=== PATIENT | female | born 1970 | race Caucasian/White ===

== ENCOUNTER 2016-04-17 14:44 | Emergency (ER) | payer OTHER ==
[~2016-04-17] VITALS: Ht 162.6 cm; Wt 63.5 kg
[~2016-04-17 14:44] MED LIST: ATIVAN1 MG PO; IMITREX100 MG PO; IMITREX50 MG PO; LOTENSIN20 MG PO; NORVASC5 MG PO; TRAMADOL50 MG; ZOFRAN ODT4 MG PO; [UNRECOGNIZED DRUG - OTHER]
[2016-04-17 15:02] VITALS: BP 124/82
--- NOTE | 2016-04-17 17:24 | NUR ---
Patient to bed 02.
--- NOTE | 2016-04-17 17:34 | NUR ---
NATANAEL CAME TRO ER DUE TO HEADACHE. PT WAS TOLD THAT SHE HAD A HIGH BP AND ADVISED TO COME HERE IN ER. PTC/O OF FRONTAL HEADACHE. PRESSURE ON CHEST. PT STATES SHE HAD A HX OF HTN, MIGRAINE AND ASTHMA.HOB ELEVATED. ALL MONITORS PLACED IN. SAFETY PRECAUTIOIN INSTITUTED. MADE AWARE OF PT'S CONDITION. WILL CONTINUE TO MONITOR PT.
--- NOTE | 2016-04-17 17:45 | NUR ---
Dr. Murrieta evaluating patient at bedside.
[2016-04-17] MEDS ORDERED: NITROGLYCERIN 0.4 MG TAB SL ONE (17:50)
[2016-04-17] MEDS ORDERED: NACL 0.9% 1,000 ML IV ONE (17:50)
[2016-04-17] MEDS ORDERED: ASPIRIN 325 MG TAB PO ONE (17:50)
--- NOTE | 2016-04-17 17:58 | NUR ---
PT AAOX4. NO ACUTE DISTRESS NOTED AT THIS TIME. PT WENT TO CT SCAN ACCOMAPNIED BY Mitro.
[2016-04-17] MEDS ORDERED: METOCLOPRAMIDE 10 MG/2 ML INJ VIAL IVP ONE (18:40)
--- NOTE | 2016-04-17 18:51 | NUR ---
PT C/O HEADACHE. NOTIFIED DR BROWER ORDERED REGLAN IVP.NO ACUTE DISTRESS NOTED AT THIS TIME.WILL CONTINUE TO MONITOR PT.
[2016-04-17] MEDS ORDERED: IBUPROFEN 800 MG TAB PO ONE (18:55)
--- NOTE | 2016-04-17 19:17 | NUR ---
TRANSFER OF CARE TO DAXA FUNG
--- NOTE | 2016-04-17 19:35 | NUR ---
Patient discharged with v/s stable. Written and verbal after care instructions given and explained. Patient alert, oriented and verbalized understanding of instructions. Ambulatory with steady gait. All questions addressed prior to discharge. ID band removed. Patient advised to follow up with PMD. Rx of MOTRIN 800MG PO, REGLAN 10MG PO given. Patient educated on indication of medication including possible reaction and side effects. Opportunity to ask questions provided and answered.
[2016-04-17 19:36] VITALS: BP 122/62
== END 2016-04-17 19:35 | disposition home or self-care (01) ==
LOC: MED 14:45
DX: E16.2 Hypoglycemia, unspecified (principal); R51 Headache; R53.1 Weakness; J45.909 Unspecified asthma, uncomplicated; I10 Essential (primary) hypertension; G43.909 Migraine, unspecified, not intractable, without status migrainosus; F17.210 Nicotine dependence, cigarettes, uncomplicated
CPT/HCPCS: 36415; 70450; 71010; 80053; 81002; 81025; 83880; 84484; 85025; 85610; 85730; 93005; 96361; 96374; 99285; J2765; J7030

== ENCOUNTER 2016-05-13 10:26 | Emergency (ER) | payer OTHER ==
[~2016-05-13] VITALS: Ht 160 cm; Wt 59.0 kg
[2016-05-13 10:38] VITALS: BP 139/102
--- NOTE | 2016-05-13 10:41 | NUR ---
PATIENT TO ER BED 3.
--- NOTE | 2016-05-13 10:45 | NUR ---
PATIENT PRESENTS TO ED WITH PT PRESENTS TO ER W/C/O HEADACHE X1 DAY. HX HTN, MIGRAINES.DENIES N/V/D; SKIN IS PINK/WARM/DRY; AAOX4 WITH EVEN AND STEADY GAIT; LUNGS CLEAR BL; HR EVEN AND REGULAR; PT DENIES ANY FEVER, CP, SOB, OR COUGH AT THIS TIME; PATIENT STATES PAIN OF 9/10 AT THIS TIME; VSS; PATIENT POSITIONED FOR COMFORT; HOB ELEVATED; BEDRAILS UP X2; BED DOWN. ER MD MADE AWARE OF PT STATUS.
--- NOTE | 2016-05-13 10:47 | NUR ---
Patient being evaluated by physician at bedside.
[2016-05-13] MEDS ORDERED: KETOROLAC 60 MG/2 ML VIAL IM ONE (10:50)
[2016-05-13] MEDS ORDERED: PROCHLORPERAZINE 10 MG/2 ML VIAL IM ONE (10:50)
[2016-05-13 11:46] VITALS: BP 131/91
--- NOTE | 2016-05-13 11:46 | NUR ---
Patient discharged with v/s stable. Written and verbal after care instructions given and explained. Patient alert, oriented and verbalized understanding of instructions. Ambulatory with steady gait. All questions addressed prior to discharge. ID band removed. Patient advised to follow up with PMD. Rx of COMPAZINE AND FIORICET given. Patient educated on indication of medication including possible reaction and side effects. Opportunity to ask questions provided and answered.
== END 2016-05-13 11:46 | disposition home or self-care (01) ==
LOC: MED 10:26
DX: R51 Headache (principal); R11.0 Nausea
CPT/HCPCS: 96372; 99284; J0780; J1885

== ENCOUNTER 2016-09-22 11:12 | Emergency (ER) | payer OTHER ==
[~2016-09-22] VITALS: Ht 160 cm; Wt 64.2 kg
[~2016-09-22 11:12] MED LIST changes: +AMLO5TAB PO; -ATIVAN1 MG PO; +BENA20TA PO; -IMITREX100 MG PO; -IMITREX50 MG PO; -LOTENSIN20 MG PO; -NORVASC5 MG PO; +ONDA4ODT1 PO; +SUMA100T1 PO; -TRAMADOL50 MG; -ZOFRAN ODT4 MG PO; -[UNRECOGNIZED DRUG - OTHER]
[2016-09-22 11:23] VITALS: BP 137/87
[2016-09-22] MEDS ORDERED: KETOROLAC 60 MG/2 ML VIAL IM ONE (11:45)
[2016-09-22 12:23] VITALS: BP 137/87
== END 2016-09-22 12:22 | disposition home or self-care (01) ==
LOC: MED 11:12
DX: G62.9 Polyneuropathy, unspecified (principal); J45.909 Unspecified asthma, uncomplicated; I10 Essential (primary) hypertension; F17.200 Nicotine dependence, unspecified, uncomplicated
CPT/HCPCS: 81002; 81025; 96372; 99283; J1885

== ENCOUNTER 2018-03-18 19:42 | Emergency (ER) | payer OTHER ==
[~2018-03-18] VITALS: Ht 160 cm; Wt 65.4 kg
[~2018-03-18 19:42] MED LIST changes: +ONDA-121 PO; -ONDA4ODT1 PO
[2018-03-18 19:52] VITALS: BP 137/112
[2018-03-18] MEDS ORDERED: ONDANSETRON 4 MG/2 ML VIAL IVP ONE (22:25)
[2018-03-18] MEDS ORDERED: SUMAtriptan 6 MG/0.5 ML VIAL SUBQ ONE (22:25)
[2018-03-18] MEDS ORDERED: DEXAMETHASONE 10 MG/ML VIAL IVP ONE (22:25)
[2018-03-18] MEDS ORDERED: KETOROLAC 30 MG/ML VIAL IVP ONE (22:25)
[2018-03-18] MEDS ORDERED: KETOROLAC 60 MG/2 ML VIAL IM ONE (22:50)
[2018-03-18] MEDS ORDERED: DEXAMETHASONE 10 MG/ML VIAL IM ONE (22:50)
[2018-03-18] MEDS ORDERED: ONDANSETRON 4 MG ODT PO ONE (22:50)
[2018-03-19 00:45] VITALS: BP 133/98
== END 2018-03-19 00:45 | disposition home or self-care (01) ==
LOC: MED 19:42
DX: G43.909 Migraine, unspecified, not intractable, without status migrainosus (principal); J45.909 Unspecified asthma, uncomplicated; I10 Essential (primary) hypertension; Z79.899 Other long term (current) drug therapy
CPT/HCPCS: J1100; J1885; J3030; Q0162; 96372; 99283; J2405

== ENCOUNTER 2018-03-26 15:39 | Emergency (ER) | payer OTHER ==
[~2018-03-26] VITALS: Ht 160 cm; Wt 63.5 kg
[~2018-03-26 15:39] MED LIST changes: -ONDA-121 PO; +ONDA-24 PO
[2018-03-26 15:47] VITALS: BP 145/89
--- NOTE | 2018-03-26 17:09 | NUR ---
PATIENT AMBULATED TO BED 3 AT THIS TIME.
--- NOTE | 2018-03-26 17:10 | NUR ---
47F BIB SELF WITH C/O MINOR LACERATION, APPROX 2CM LONG, TO LEFT THUMB. PT STS ACCIDENTLY CUT IT WITH A RAZOR BLADE WHILE SHAVING. -SWELLING, -REDNESS, -DEFORMATY. PT IS AAOX4 TO PERSON, TIME, SITUATION, AND TIME. RR ARE EVEN AND UNLABORED. NAD. AWAITING ER MD TAI.
--- NOTE | 2018-03-26 19:10 | NUR ---
Pt report given to Christen MITTAL. Transfer of care at this time.
--- NOTE | 2018-03-26 19:15 | NUR ---
PT SITTING UP IN BED, VSS. PT STATED SHE HAS SOME BURNING/PAIN ON FINGER. ER MD MADE AWARE.
--- NOTE | 2018-03-26 19:44 | NUR ---
PT TO ER CHAIR E
[2018-03-26] MEDS ORDERED: IBUPROFEN 800 MG TAB PO ONE (19:50)
[2018-03-26 20:18] VITALS: BP 145/89
--- NOTE | 2018-03-26 20:18 | NUR ---
Patient discharged with v/s stable. Written and verbal after care instructions given and explained. Patient alert, oriented and verbalized understanding of instructions. Ambulatory with steady gait. All questions addressed prior to discharge. ID band removed. Patient advised to follow up with PMD. Rx of IBUPROFEN WAS given. Patient educated on indication of medication including possible reaction and side effects. Opportunity to ask questions provided and answered.
== END 2018-03-26 20:18 | disposition home or self-care (01) ==
LOC: MED 15:39
DX: S61.012A Laceration without foreign body of left thumb without damage to nail, initial encounter (principal); J45.909 Unspecified asthma, uncomplicated; I10 Essential (primary) hypertension; F41.9 Anxiety disorder, unspecified; G43.909 Migraine, unspecified, not intractable, without status migrainosus; Z79.899 Other long term (current) drug therapy; W26.8XXA Contact with other sharp object(s), not elsewhere classified, initial encounter; Y93.89 Activity, other specified; Y92.89 Other specified places as the place of occurrence of the external cause; Y99.8 Other external cause status
CPT/HCPCS: 12001; 99283

== ENCOUNTER 2018-07-05 15:40 | Emergency (ER) | payer OTHER ==
[~2018-07-05] VITALS: Ht 160 cm; Wt 63.6 kg
[2018-07-05 15:50] VITALS: BP 145/98
--- NOTE | 2018-07-05 15:58 | NUR ---
BIB SELF. AAO X4 C/O LEFT SIDED OF HEAD PAIN X 2 DAYS, LOWER BACK PAIN X LAST NIGHT. N/V X TODAY. DENIES DYSURIA OR TRAUMA. PT HAS A HX OF MIGRAINE. SUMATRIPTAN TAKEN TODAY AM FOR MIGRAINE PRESCRIBED. DENIES SOB. STEADY GAIT. HOB UP. ON LOW BED POSITION, LOCKED. ER MADE AWARE OF PT STATUS.
--- NOTE | 2018-07-05 15:58 | NUR ---
PT AMB TO BED 7
--- NOTE | 2018-07-05 15:59 | NUR ---
Luly day in [facility] - 07/05/18 at 1559 by [email or web address] PT AMB TO BED 6
[2018-07-05] MEDS ORDERED: ACETAMINOPHEN EXTRA STRENGTH 500 MG TAB PO ONE (16:20)
[2018-07-05] MEDS ORDERED: diphenhydrAMINE 50 MG CAP PO ONE (16:20)
[2018-07-05] MEDS ORDERED: PROCHLORPERAZINE 10 MG/2 ML VIAL IM ONE (16:20)
[2018-07-05 16:59] VITALS: BP 148/97
--- NOTE | 2018-07-05 16:59 | NUR ---
Patient discharged with v/s stable. Written and verbal after care instructions given and explained. Patient alert, oriented and verbalized understanding of instructions. Ambulatory with steady gait. All questions addressed prior to discharge. ID band removed. Patient advised to follow up with PMD. Rx of TYLENOL EXTRA STRENGTH given. Patient educated on indication of medication including possible reaction and side effects. Opportunity to ask questions provided and answered.
== END 2018-07-05 16:59 | disposition home or self-care (01) ==
LOC: MED 15:40
DX: G43.909 Migraine, unspecified, not intractable, without status migrainosus (principal); J45.909 Unspecified asthma, uncomplicated; I10 Essential (primary) hypertension; F17.210 Nicotine dependence, cigarettes, uncomplicated; Z79.899 Other long term (current) drug therapy
CPT/HCPCS: 96372; 99283; J0780; Q0163

== ENCOUNTER 2018-11-02 18:33 | Emergency (ER) | payer OTHER ==
[~2018-11-02] VITALS: Ht 160 cm; Wt 63.5 kg
[2018-11-02 18:40] VITALS: BP 176/112
[2018-11-02] MEDS ORDERED: ONDANSETRON 4 MG ODT PO ONE (19:35)
[2018-11-02] MEDS ORDERED: SUMAtriptan 6 MG/0.5 ML VIAL SUBQ ONE (19:35)
[2018-11-02] MEDS ORDERED: diphenhydrAMINE 50 MG/ML VIAL IVP ONE (20:45)
[2018-11-02] MEDS ORDERED: MORPHINE SULFATE 4 MG/ML SYR IVP ONE (20:45)
[2018-11-02] MEDS ORDERED: PROCHLORPERAZINE 10 MG/2 ML VIAL IVP ONE (20:45)
[2018-11-02] MEDS ORDERED: cloNIDine 0.1 MG TAB PO ONE (21:35)
[2018-11-02 22:04] VITALS: BP 155/98
== END 2018-11-02 22:04 | disposition home or self-care (01) ==
LOC: MED 18:33
DX: G43.909 Migraine, unspecified, not intractable, without status migrainosus (principal); I10 Essential (primary) hypertension; J45.909 Unspecified asthma, uncomplicated; Z91.14 Patient's other noncompliance with medication regimen; Z79.899 Other long term (current) drug therapy
CPT/HCPCS: 96372; 96374; 96375; 99283; J0780; J1200; J2270; J3030; Q0162

== ENCOUNTER 2019-01-06 18:08 | Emergency (ER) | payer OTHER ==
[~2019-01-06] VITALS: Ht 162.6 cm; Wt 62.1 kg
[2019-01-06 18:23] VITALS: BP 148/97
--- NOTE | 2019-01-06 18:27 | NUR ---
PT TO ER LOBBY. PT ALERT AND AWAKE. PT NOT ACTIVELY VOMITING, BUT GIVEN VOMIT BAG
--- NOTE | 2019-01-06 19:59 | NUR ---
PT AMBULATED TO BED 7
--- NOTE | 2019-01-06 20:05 | NUR ---
48 Y/O F PRESENTS TO ED WITH C/O MIGRAINE X1 DAY. PT REPORTS HX OF MIGRAINES. LT SIDED TEMPORAL PAIN, 9/10 PAIN, ACHING AND THROBBING. NON-RADIATING PAIN. +NAUSEA. PT SELF MEDICATED WITH IMITREX WITH NO RELIEF. NO VISION CHANGES. ERMD UPDATED ON PT STATUS. WILL CONTINUE TO MONITOR.
--- NOTE | 2019-01-06 20:48 | NUR ---
DR. JESUS AT BEDSIDE.
[2019-01-06] MEDS ORDERED: NACL 0.9% 1,000 ML IV ONE (20:53)
[2019-01-06] MEDS ORDERED: METOCLOPRAMIDE 10 MG/2 ML INJ VIAL IVP ONE (20:55)
[2019-01-06] MEDS ORDERED: KETOROLAC 30 MG/ML VIAL IVP ONE (20:55)
[2019-01-06] MEDS ORDERED: diphenhydrAMINE 50 MG/ML VIAL IVP ONE (20:55)
--- NOTE | 2019-01-06 20:56 | NUR ---
PT STATED "I DONT WANT THE MEDICATION THROUGH THE IV. IT MAKES ME ANXIOUS." ERMD MADE AWARE.
[2019-01-06] MEDS ORDERED: KETOROLAC 30 MG/ML VIAL IM ONE (21:15)
--- NOTE | 2019-01-06 21:50 | NUR ---
PT REPORTS UNCHANGED PAIN LEVEL. ERMD MADE AWARE.
[2019-01-06] MEDS ORDERED: diphenhydrAMINE 50 MG/ML VIAL IM ONE (21:55)
[2019-01-06] MEDS ORDERED: METOCLOPRAMIDE 10 MG TAB PO ONE (21:55)
[2019-01-06 22:07] VITALS: BP 139/82
--- NOTE | 2019-01-06 22:08 | NUR ---
REGLAN PILL DROPPED ON THE FLOOR BY THE PATIENT, MEDICATION WASTED AT [facility]. SECOND REGLAN PILL PULLED AND ADMINISTERED.
--- NOTE | 2019-01-06 22:50 | NUR ---
Patient discharged with v/s stable. Written and verbal after care instructions given and explained. Patient alert, oriented and verbalized understanding of instructions. Ambulatory with steady gait. All questions addressed prior to discharge. ID band removed. Patient advised to follow up with PMD. Rx of michelle glynn given. Patient educated on indication of medication including possible reaction and side effects. Opportunity to ask questions provided and answered.
== END 2019-01-06 22:50 | disposition home or self-care (01) ==
LOC: MED 18:08
DX: G43.909 Migraine, unspecified, not intractable, without status migrainosus (principal); I10 Essential (primary) hypertension; F41.9 Anxiety disorder, unspecified; F17.210 Nicotine dependence, cigarettes, uncomplicated; Z79.2 Long term (current) use of antibiotics; Z79.899 Other long term (current) drug therapy
CPT/HCPCS: 96372; 99283; J1200; J1885; J8597; J2765

== ENCOUNTER 2019-02-14 15:02 | Emergency (ER) | payer OTHER ==
[~2019-02-14] VITALS: Ht 160 cm; Wt 61.9 kg
[2019-02-14 15:16] VITALS: BP 166/106
--- NOTE | 2019-02-14 16:00 | NUR ---
C/O HEADACHE STARTING TODAY ACCOMPANIED WITH NAUSEA/VOMITING TODAY. PT STATES SHE HAS A HX OF MIGRAINES AND SHE TOOK 200MG OF IMITREX TODAY BUT IT DID NOT PROVIDE RELIEF. PT DENIES BLURRY VISION. PT ALERT AND ANSWERING QUESTIONS APPROPRIATELY.
--- NOTE | 2019-02-14 17:00 | NUR ---
ERMD AT BEDSIDE
[2019-02-14] MEDS ORDERED: PROCHLORPERAZINE 10 MG/2 ML VIAL IM ONE (17:10)
[2019-02-14] MEDS ORDERED: KETOROLAC 60 MG/2 ML VIAL IM ONE (17:10)
--- NOTE | 2019-02-14 17:49 | NUR ---
PT ASLEEP IN BED, AROUSABLE TO VERBAL STIMULI
[2019-02-14 19:04] VITALS: BP 150/96
--- NOTE | 2019-02-14 19:06 | NUR ---
Patient discharged with v/s stable. Written and verbal after care instructions given and explained. Patient alert, oriented and verbalized understanding of instructions. Ambulatory with steady gait. All questions addressed prior to discharge. ID band removed. Patient advised to follow up with PMD. Rx of NORCO, NAPROSYN AND COMPAZINE given. Patient educated on indication of medication including possible reaction and side effects. Opportunity to ask questions provided and answered.
== END 2019-02-14 19:04 | disposition home or self-care (01) ==
LOC: MED 15:02
DX: G43.909 Migraine, unspecified, not intractable, without status migrainosus (principal); I10 Essential (primary) hypertension; F17.210 Nicotine dependence, cigarettes, uncomplicated; Z79.899 Other long term (current) drug therapy
CPT/HCPCS: 96372; 99283; J0780; J1885

== ENCOUNTER 2019-04-13 09:21 | Emergency (ER) | payer OTHER ==
[~2019-04-13] VITALS: Ht 160 cm; Wt 62.8 kg
[2019-04-13 09:36] VITALS: BP 149/97
--- NOTE | 2019-04-13 09:57 | NUR ---
48 Y/O F C/O MIGRAINE AGUILAR 12/08 X 5 DAYS. PT DENIES N/V PT STATES SHE GETS MIGRAINES, TOOK IMOTREX 100MG AT 2:00AM, WITH NO RELIEF. PT POSITIONED FOR COMFORT, LIGHTS DIMMED, SIDE RAIL X [address] NKA PMH:HTN, MIGRAINES
[2019-04-13] MEDS ORDERED: NACL 0.9% 1,000 ML IV ONE (10:10)
[2019-04-13] MEDS ORDERED: KETOROLAC 30 MG/ML VIAL IVP ONE (10:10)
[2019-04-13] MEDS ORDERED: SUMAtriptan 25 MG TAB PO ONE ×2 (10:10→11:40)
[2019-04-13 10:36] LABS: BASOPHILS # (AUTO) 0.1 K/uL (0.00-0.22); BASOPHILS % (AUTO) 1.2 % (0.0-2.0); EOSINOPHILS # (AUTO) 0.3 K/uL (0-0.4); EOSINOPHILS % (AUTO) 5.3 % (0.0-4.0); HEMATOCRIT 41.3 % (36-48); HEMOGLOBIN 13.4 g/dL (12.0-16.0); LYMPHOCYTES # (AUTO) 1.5 K/uL (2.5-16.5); MEAN CORPUSCULAR HEMOGLOBIN 29 pg (27-31); MEAN CORPUSCULAR HGB CONC 32 g/dL (33-37); MEAN CORPUSCULAR VOLUME 88.4 fL (80-94); MONOCYTES # (AUTO) 0.5 K/uL (0.8-1.0); MONOCYTES % (AUTO) 7.8 % (1.7-9.3); NEUTROPHILS # (AUTO) 3.7 K/uL (1.8-7.7); NEUTROPHILS % (AUTO) 60.7 % (42.2-75.2); PLATELET COUNT (AUTO) 343 K/uL (140-450); RED BLOOD CELL COUNT(AUTO) 4.67 MIL/uL (4.20-5.40); RED CELL DISTRIBUTION WIDTH 14.3 % (11.6-13.7); WHITE BLOOD COUNT (AUTO) 6.2 K/uL (4.8-10.8)
--- NOTE | 2019-04-13 10:59 | NUR ---
PT REQUESTED TORADOL 30 MG/1 ML BE GIVEN IM VERSES IVP. DR MACDONALD GAVE VERBAL OK TO PT REQUEST. PT GIVEN TORADOL 30MG/1ML IM RT DELTOID.
[2019-04-13 11:05] LABS: ANION GAP 10.1 (8-16); CREATININE 0.7 mg/dL (0.6-1.3); POTASSIUM 4.1 mmol/L (3.5-5.1); TOTAL BILIRUBIN 0.1 mg/dL (0.0-1.0)
[2019-04-13] MEDS ORDERED: ACETAMINOPHEN 325 MG TAB PO ONE (11:40)
[2019-04-13 11:52] VITALS: BP 146/98
--- NOTE | 2019-04-13 11:52 | NUR ---
Patient discharged with v/s stable. Written and verbal after care instructions given and explained. Patient alert, oriented and verbalized understanding of instructions. Ambulatory with . All questions addressed prior to discharge. ID band removed. Patient advised to follow up with PMD. Rx of MOTRIN, SUMATRIPTAN given. Patient educated on indication of medication including possible reaction and side effects. Opportunity to ask questions provided and answered.
== END 2019-04-13 11:52 | disposition home or self-care (01) ==
LOC: MED 09:21
DX: R55 Syncope and collapse (principal); G43.909 Migraine, unspecified, not intractable, without status migrainosus; J45.909 Unspecified asthma, uncomplicated; I10 Essential (primary) hypertension; Z79.899 Other long term (current) drug therapy
CPT/HCPCS: 36415; 70450; 80053; 84484; 85025; 93005; 96372; 99285; J1885

== ENCOUNTER 2019-04-25 20:26 | Emergency (ER) | payer OTHER ==
[~2019-04-25] VITALS: Ht 162.6 cm; Wt 63.5 kg
[2019-04-25 20:30] VITALS: BP 139/97
--- NOTE | 2019-04-25 20:30 | NUR ---
TO CHAIR B AMBULATORY
[2019-04-25] MEDS ORDERED: NACL 0.9% 1,000 ML IV ONE (21:00)
[2019-04-25] MEDS ORDERED: METOCLOPRAMIDE 10 MG/2 ML INJ VIAL IVP ONE (21:00)
[2019-04-25] MEDS ORDERED: diphenhydrAMINE 50 MG/ML VIAL IVP ONE (21:00)
[2019-04-25] MEDS ORDERED: KETOROLAC 15 MG/ML VIAL IVP ONE (21:00)
--- NOTE | 2019-04-25 21:00 | NUR ---
48/F presents to ED, c/o generalized headache, similar to pt's previous migraines, x2 days. Reports resolved n/v yesterday. Reports light/sound sensitivity, and blurred vision. Pt awake and alert, skin normal color warm and dry, rr even and unlabored. Hx migraine, HTN, asthma, anxiety Rx imitrex without relief, reglan with relief
--- NOTE | 2019-04-25 22:00 | NUR ---
PATIENT ALERT AND AWAKE, BREATHING EVEN AND UNLABORED
--- NOTE | 2019-04-25 22:03 | NUR ---
Pt refused IV medications, pt stated she wanted ordered reglan, toradol and benadryl through IV. Verbal order from DARLYN Hardy to switch meds to IM route.
[2019-04-25] MEDS ORDERED: KETOROLAC 15 MG/ML VIAL IM ONE (22:15)
[2019-04-25] MEDS ORDERED: METOCLOPRAMIDE 10 MG/2 ML INJ VIAL IM ONE (22:15)
[2019-04-25] MEDS ORDERED: diphenhydrAMINE 50 MG/ML VIAL IM ONE (22:15)
--- NOTE | 2019-04-25 22:50 | NUR ---
PATIENT ALERT AND AWAKE, STATES PAIN STILL THERE BUT NOT BAD
[2019-04-25 23:20] VITALS: BP 169/108
--- NOTE | 2019-04-25 23:20 | NUR ---
Patient discharged with v/s stable. Written and verbal after care instructions about migraine headaches given and explained. Patient verbalized understanding. Ambulatory with steady gait. All questions addressed prior to discharge. Advised to follow up with PMD.
--- NOTE | 2019-04-27 06:28 | NUR ---
Late entry. Confirmed with RN that 0.9 NS IV was completed at 2300
== END 2019-04-25 23:20 | disposition home or self-care (01) ==
LOC: MED 20:26
DX: G43.909 Migraine, unspecified, not intractable, without status migrainosus (principal); I10 Essential (primary) hypertension; R11.2 Nausea with vomiting, unspecified; J45.909 Unspecified asthma, uncomplicated; F17.210 Nicotine dependence, cigarettes, uncomplicated; Z79.899 Other long term (current) drug therapy
CPT/HCPCS: 96360; 96372; 99284; J1200; J1885; J2765; J7030; 96361

== ENCOUNTER 2019-05-03 21:55 | Emergency (ER) | payer OTHER ==
[~2019-05-03] VITALS: Ht 160 cm; Wt 63.5 kg
[2019-05-03 22:00] VITALS: BP 132/90
--- NOTE | 2019-05-03 22:02 | NUR ---
TO LOBBY A/W BED AMBULATORY
--- NOTE | 2019-05-03 22:15 | NUR ---
PT AMBULATED TO BED #11
--- NOTE | 2019-05-03 22:19 | NUR ---
PT ASSESSMENT COMPLETE. PT LAYING IN BED. WILL CONTINUE TO MONITOR.
[2019-05-03] MEDS ORDERED: KETOROLAC 30 MG/ML VIAL IVP ONE (22:50)
[2019-05-03] MEDS ORDERED: PROCHLORPERAZINE 10 MG/2 ML VIAL IVP ONE (22:50)
[2019-05-03] MEDS ORDERED: DEXAMETHASONE 10 MG/ML VIAL IVP ONE (22:50)
[2019-05-03] MEDS ORDERED: diphenhydrAMINE 50 MG/ML VIAL IVP ONE (22:50)
[2019-05-03] MEDS ORDERED: NACL 0.9% 1,000 ML IV ONE (22:55)
[2019-05-03] MEDS ORDERED: KETOROLAC 30 MG/ML VIAL IM ONE (23:15)
[2019-05-03] MEDS ORDERED: diphenhydrAMINE 50 MG CAP PO ONE (23:15)
[2019-05-03] MEDS ORDERED: PROCHLORPERAZINE 10 MG/2 ML VIAL IM ONE (23:15)
[2019-05-04 00:52] VITALS: BP 128/78
--- NOTE | 2019-05-04 00:52 | NUR ---
Patient discharged with v/s stable. Written and verbal after care instructions given and explained. Patient alert, oriented and verbalized understanding of instructions. Ambulatory with steady gait. All questions addressed prior to discharge. ID band removed. Patient advised to follow up with PMD. Opportunity to ask questions provided and answered.
--- NOTE | 2019-05-04 13:41 | NUR ---
Late entry. Confirmed with RN that 0.9 NS IV completed at 3615
== END 2019-05-04 00:52 | disposition home or self-care (01) ==
LOC: MED 21:55
DX: G43.909 Migraine, unspecified, not intractable, without status migrainosus (principal); I10 Essential (primary) hypertension; Z79.899 Other long term (current) drug therapy
CPT/HCPCS: 96361; 96372; 96374; 99284; J0780; J1100; J1885; J7030; Q0163; J1200

== ENCOUNTER 2019-07-05 15:08 | Emergency (ER) | payer OTHER ==
[~2019-07-05] VITALS: Ht 160 cm; Wt 63.5 kg
[2019-07-05 16:14] VITALS: BP 111/80
--- NOTE | 2019-07-05 16:21 | NUR ---
WAIT AT LOBBY.
--- NOTE | 2019-07-05 16:37 | NUR ---
Patient ambulated to bed 2. RN evaluating patient at bedside.
--- NOTE | 2019-07-05 16:45 | NUR ---
PT C/O DYSURIA WITH NAUSEA AND LOWER ABDOMINAL PAIN S/P LAPAROSCOPIC HYSTERECTOMY SINCE YESTERDAY. DENIES VOMITING, DIARREHEA, COUGH, CP, SOB, RUNNY NOSE, OR OTHER DISCOMFORTS; 4 LAPAROSCOPIC INCISION ON ABDOMEN WITHOUT ACTIVE BLEEDING OR DISCHARGE AT THIS TIME UPON ASSESSMENT; LOWER ABDOMEN IS TENDER TO LIGHT AND DEEP PALPATION. AAOX4 WITH EVEN AND STEADY GAIT; LUNGS CLEAR BL; HR EVEN AND REGULAR; PATIENT IS CRYING AND STATING PAIN OF 10/10 AT THIS TIME; VSS; PATIENT POSITIONED FOR COMFORT; HOB ELEVATED; BEDRAILS UP X1; BED DOWN. ER MD MADE AWARE OF PT STATUS.
[2019-07-05] MEDS ORDERED: ONDANSETRON 4 MG/2 ML VIAL IVP ONE (17:15)
[2019-07-05] MEDS ORDERED: MORPHINE SULFATE 4 MG/ML SYR IVP ONE (17:15)
[2019-07-05] MEDS ORDERED: NACL 0.9% 1,000 ML IV ONE (17:45)
--- NOTE | 2019-07-05 18:05 | NUR ---
PT IS RESTING IN THE BED WITH EYES CLOSED. VSS SHOWED ON THE MONITOR.
[2019-07-05 18:08] LABS: BASOPHILS # (AUTO) 0.1 K/uL (0.00-0.22); BASOPHILS % (AUTO) 0.7 % (0.0-2.0); EOSINOPHILS # (AUTO) 0.4 K/uL (0-0.4); EOSINOPHILS % (AUTO) 5.1 % (0.0-4.0); HEMATOCRIT 38.2 % (36-48); HEMOGLOBIN 12.4 g/dL (12.0-16.0); LYMPHOCYTES # (AUTO) 0.9 K/uL (2.5-16.5); LYMPHOCYTES % (AUTO) 11.1 % (20.5-51.1); MEAN CORPUSCULAR HEMOGLOBIN 29 pg (27-31); MEAN CORPUSCULAR HGB CONC 33 g/dL (33-37); MEAN CORPUSCULAR VOLUME 87.6 fL (80-94); MONOCYTES # (AUTO) 0.5 K/uL (0.8-1.0); MONOCYTES % (AUTO) 6.2 % (1.7-9.3); NEUTROPHILS % (AUTO) 76.9 % (42.2-75.2); PLATELET COUNT (AUTO) 292 K/uL (140-450); RED BLOOD CELL COUNT(AUTO) 4.36 MIL/uL (4.20-5.40); WHITE BLOOD COUNT (AUTO) 7.8 K/uL (4.8-10.8)
[2019-07-05 18:25] LABS: ALBUMIN 2.9 g/dL (3.4-5.0); ANION GAP 9.8 (8-16); CARBON DIOXIDE 30.8 mmol/L (21-32); CREATININE 0.8 mg/dL (0.6-1.3); POTASSIUM 3.6 mmol/L (3.5-5.1); TOTAL BILIRUBIN 0.2 mg/dL (0.0-1.0)
--- NOTE | 2019-07-05 19:18 | NUR ---
Pt report given to DAXA Suero. Transfer of care at this time.
--- NOTE | 2019-07-05 19:22 | NUR ---
REPORT RECEIVED FROM DAXA LEE. PATIENT GREETED, AND AND 400ML OF RONALD COLORED, CLEAR URINE NOTED IN URINARY CATHETER BAG
[2019-07-05 20:02] VITALS: BP 128/82
--- NOTE | 2019-07-05 20:02 | NUR ---
Patient discharged with v/s stable. Written and verbal after care instructions given and explained. Patient verbalized understanding. Ambulatory with steady gait. All questions addressed prior to discharge. Advised to follow up with PMD.
--- NOTE | 2019-07-05 20:02 | NUR ---
PER DR. LEYVA PT'S 16 FR CATHETER TO REMAIN IN PLACE UNTIL POST-OP APPT 07/06/19. 320ML DRAINED FROM BAG, AND ADDITIONAL BAG GIVEN TO PT, IN THE EVENT CURRENT BAG BECOMES FULL. PT D/C'D WITH VSS.
== END 2019-07-05 20:02 | disposition home or self-care (01) ==
LOC: MED 15:08
DX: R10.2 Pelvic and perineal pain (principal); J45.909 Unspecified asthma, uncomplicated; G43.909 Migraine, unspecified, not intractable, without status migrainosus; I10 Essential (primary) hypertension; Z90.710 Acquired absence of both cervix and uterus; Z79.899 Other long term (current) drug therapy
CPT/HCPCS: 36415; 80053; 81002; 83690; 85025; 96374; 96375; 99284; J2270; J2405; J7030

== ENCOUNTER 2019-07-14 17:02 | Emergency (ER) | payer OTHER ==
[~2019-07-14] VITALS: Ht 160 cm; Wt 63.0 kg
[2019-07-14 17:15] VITALS: BP 160/97
--- NOTE | 2019-07-14 17:15 | NUR ---
Pt taken to bed 11.
--- NOTE | 2019-07-14 17:23 | NUR ---
48 Y/O F C/C LLQ ABD PAIN, SHARP, 7/10 X 3 DAYS. PER PT HAD HESTERECTOMY LAST WEEK. PT FURTHER COMPLAINTS OF LOWER QUADRANT ABD PAIN STARTED TODAY WHEN URINATING, PER PT PRESSURE SENSATION RADIATING TO THE BACK, 10/10 PAIN X 1 DAY. PT NAUSEUS. TOLD BY PCP TO COME TO ER FOR FURTHER EVALUATION. DENIES HEMATURIA AND HEMATOCHEZIA. ABDOMEN AREA WITH INCISION SITES, NO ACTIVE BLEEDING NOTED, HEALING STAGES NOTED. PT NKA. HX HTN,ANXIETY,MIGRAINES. RX AMLODOPINE,ATIVAN,SUMATRAPTAN. NO V/D.
--- NOTE | 2019-07-14 17:28 | NUR ---
ERMD AT BEDSIDE
[2019-07-14] MEDS ORDERED: HYDROcodone/APAP 5/325 MG 1 TAB TAB PO ONE (17:30)
[2019-07-14 18:18] LABS: BILIRUBIN,URINE NEGATIVE (NEGATIVE); BLOOD, URINE 2+ (NEGATIVE); LEUKOCYTE ESTERASE ,URINE TRACE (NEGATIVE); NITRITE, URINE POSITIVE (NEGATIVE); PH,URINE 5.5 (5.0-9.0); UGLUCOSE NEGATIVE (NEGATIVE)
--- NOTE | 2019-07-14 18:23 | NUR ---
Patient returned from CT scan. RN re-evaluating patient at bedside.
[2019-07-14 18:25] LABS: APPEARANCE,URINE HAZY (CLEAR); COLOR,URINE YELLOW (YELLOW)
[2019-07-14 18:36] LABS: RBC,URINE 0-5 /HPF (0-5)
[2019-07-14] MEDS ORDERED: LIDOCAINE MPF 1% 5 ML ONE (18:55)
[2019-07-14] MEDS ORDERED: cefTRIAXone 1,000 MG in LIDOCAINE MPF 1% 2.1 ML IM ONE (18:55)
[2019-07-14] MEDS ORDERED: cefTRIAXone 1,000 MG VIAL ONE (18:55)
[2019-07-14 19:09] VITALS: BP 148/90
--- NOTE | 2019-07-14 19:09 | NUR ---
CT RESULTS PROVIDED TO PT PER PT REQUEST
== END 2019-07-14 19:09 | disposition home or self-care (01) ==
LOC: MED 17:02
DX: N39.0 Urinary tract infection, site not specified (principal); J45.909 Unspecified asthma, uncomplicated; I10 Essential (primary) hypertension; G43.909 Migraine, unspecified, not intractable, without status migrainosus; Z79.899 Other long term (current) drug therapy
CPT/HCPCS: 74176; 81001; 81025; 87086; 87186; 96372; 99284; J0696; J2001

== ENCOUNTER 2020-04-16 13:20 | Emergency (ER) | payer OTHER ==
[~2020-04-16] VITALS: Ht 167.6 cm; Wt 63.5 kg
[2020-04-16 13:24] VITALS: BP 116/82
--- NOTE | 2020-04-16 13:40 | NUR ---
PT WAS PLACED IN BED 9.
--- NOTE | 2020-04-16 13:47 | NUR ---
49 Y/O F C.O MIGRAINE THAT STARTED LAST NIGHT 04/15/20, 9 PAIN/PRESSURE THAT RADIATES TO EYES. TOOK IBUPROFEN AND SUMATRIPTAN 100MG, NO RELIEF. LAST DOSE WAS THIS MORNING 04/16/20 @1000. DENIES ANY SYMPTOMS OF COVID SUCH FEVER, SOB, COUGH, CHEST PAIN, AND DENIES CONTACT WITH ANYONE COVID POSITIVE. PMH: MIGRAINES, HTN, ANXIETY. MO GI/ ABNORMALITIES. A&O X4. PT IS CONNECTED TO BP, PULSE OXIMETER, AND CARDIAC MONITORING.
[2020-04-16] MEDS ORDERED: KETOROLAC 30 MG/ML VIAL IVP ONE (14:20)
[2020-04-16] MEDS ORDERED: NACL 0.9% 1,000 ML IV ONE (14:20)
[2020-04-16] MEDS ORDERED: ONDANSETRON 4 MG/2 ML VIAL IVP ONE (14:20)
[2020-04-16] MEDS ORDERED: diphenhydrAMINE 50 MG/ML VIAL IVP ONE (14:20)
--- NOTE | 2020-04-16 15:14 | NUR ---
NO PAIN RELIEF WITH MEDS, ERMD NOTIFIED.
[2020-04-16] MEDS ORDERED: SUMAtriptan succinate 6 MG/0.5 ML VIAL SUBQ ONE (15:20)
[2020-04-16] MEDS ORDERED: ONDA4TAB PO (15:49)
--- NOTE | 2020-04-16 16:06 | NUR ---
PT AFTER SQ MED, STILL NO PAIN RELIEF. PT STATED PHARMACY ON FILE WAS OKAY TO [employer] AND REQUESTED PAIN MEDICATION TO TAKE HOME. ERMD NOTIFIED.
[2020-04-16] MEDS ORDERED: HYDROcodone/APAP 5/325 MG 1 TAB TAB PO ONE (16:10)
[2020-04-16] MEDS ORDERED: SUMA100T1 PO (16:11)
[2020-04-16 17:12] VITALS: BP 116/82
--- NOTE | 2020-04-16 17:12 | NUR ---
Patient discharged with v/s stable. Written and verbal after care instructions given and explained. Patient alert, oriented and verbalized understanding of instructions. Ambulatory with steady gait. All questions addressed prior to discharge. ID band removed. Patient advised to follow up with PMD. Rx of ZOFRAN AND SUMATRIPTAN given. Patient educated on indication of medication including possible reaction and side effects. Opportunity to ask questions provided and answered.
== END 2020-04-16 17:12 | disposition home or self-care (01) ==
LOC: MED 13:20
DX: G43.909 Migraine, unspecified, not intractable, without status migrainosus (principal); R11.0 Nausea; R42 Dizziness and giddiness; J45.909 Unspecified asthma, uncomplicated; I10 Essential (primary) hypertension; F41.9 Anxiety disorder, unspecified; Z98.890 Other specified postprocedural states; Z90.710 Acquired absence of both cervix and uterus; Z79.899 Other long term (current) drug therapy
CPT/HCPCS: 96361; 96372; 96374; 96375; 99284; J1200; J1885; J2405; J3030; J7030

== ENCOUNTER 2020-06-16 20:45 | Emergency (ER) | payer OTHER ==
[~2020-06-16] VITALS: Ht 160 cm; Wt 68.0 kg
[~2020-06-16 20:45] MED LIST changes: +ONDA4TAB PO
[2020-06-16 20:47] VITALS: BP 137/98
[2020-06-16] MEDS ORDERED: NACL 0.9% 1,000 ML IV ONE (21:15)
[2020-06-16] MEDS ORDERED: KETOROLAC 15 MG/ML VIAL IVP ONE (21:15)
[2020-06-16] MEDS ORDERED: diphenhydrAMINE 50 MG/ML VIAL IVP ONE (21:15)
[2020-06-16] MEDS ORDERED: METOCLOPRAMIDE 10 MG/2 ML INJ VIAL IVP ONE (21:15)
[2020-06-16] MEDS ORDERED: METO-485 PO (22:48)
[2020-06-16 23:09] VITALS: BP 140/91
== END 2020-06-16 23:09 | disposition home or self-care (01) ==
LOC: MED 20:45
DX: G43.909 Migraine, unspecified, not intractable, without status migrainosus (principal); R11.0 Nausea; F17.200 Nicotine dependence, unspecified, uncomplicated; J45.909 Unspecified asthma, uncomplicated; I10 Essential (primary) hypertension; Z79.899 Other long term (current) drug therapy; Z90.710 Acquired absence of both cervix and uterus
CPT/HCPCS: 96361; 96374; 96375; 99285; J1200; J1885; J2765; J7030

== ENCOUNTER 2020-08-09 13:33 | Emergency (ER) | payer OTHER ==
[~2020-08-09] VITALS: Ht 160 cm; Wt 67.1 kg
[~2020-08-09 13:33] MED LIST changes: +METO-485 PO
[2020-08-09 13:43] VITALS: BP 161/103
--- NOTE | 2020-08-09 14:03 | NUR ---
Patient ambualted to bed 11 at this time.
--- NOTE | 2020-08-09 14:19 | NUR ---
49 YEAR OLD FEMALE COMPLAINS OF LEFT ARM PAIN X 5 DAYS. PT STATES THAT SHE HAD IV PLACEMENT PRIOR TO PAIN AND THAT HAS HAD STABBING PAIN IN LEFT FOREARM SINCE. RADIAL PULSE +3, CAP REFILL <3 SEC, SENSATION INTACT. PT AOX4, BREATHING EVEN AND UNLABORED, SKIN WARM AND DRY. BED IN LOWEST POSITION, LOCKED, BED RAIL UPX1. PMH - HTN, ASTHMA, ANXIETY ALLERGIES - NKA
[2020-08-09] MEDS ORDERED: HYDROcodone/APAP 5/325 MG 1 TAB TAB PO ONE (14:20)
[2020-08-09] MEDS ORDERED: KETOROLAC 30 MG/ML VIAL IM ONE (14:25)
--- NOTE | 2020-08-09 14:45 | NUR ---
US AT BEDSIDE
--- NOTE | 2020-08-09 15:00 | NUR ---
PT REFUSED NORCO. MEDICATION RETURNED TO [facility]
[2020-08-09] MEDS ORDERED: CEPH-588 PO (15:30)
[2020-08-09] MEDS ORDERED: NAPR-54 PO (15:30)
--- NOTE | 2020-08-09 15:40 | NUR ---
Patient discharged with v/s stable. Written and verbal after care instructions about celluliti, thrombophlebitis given and explained. Patient alert, oriented and verbalized understanding of instructions. Ambulatory with steady gait. All questions addressed prior to discharge. ID band removed. Patient advised to follow up with PMD. Rx of keflex, naprosyn given. Patient educated on indication of medication including possible reaction and side effects. Opportunity to ask questions provided and answered.
[2020-08-09 15:41] VITALS: BP 161/103
== END 2020-08-09 15:40 | disposition home or self-care (01) ==
LOC: MED 13:33
DX: L03.114 Cellulitis of left upper limb (principal); J45.909 Unspecified asthma, uncomplicated; I10 Essential (primary) hypertension; G43.909 Migraine, unspecified, not intractable, without status migrainosus; F17.200 Nicotine dependence, unspecified, uncomplicated; Z79.899 Other long term (current) drug therapy
CPT/HCPCS: 93971; 96372; 99284; J1885

== ENCOUNTER 2020-08-12 18:30 | Emergency (ER) | payer OTHER ==
[~2020-08-12] VITALS: Ht 160 cm; Wt 66.2 kg
[~2020-08-12 18:30] MED LIST changes: +CEPH-588 PO; +NAPR-54 PO
[2020-08-12 18:37] VITALS: BP 133/85
--- NOTE | 2020-08-12 18:44 | NUR ---
PT AMBULATORY TO BED #11
--- NOTE | 2020-08-12 18:45 | NUR ---
49 y/o F BIB self from home with c/c left arm pain. Pt states 07/02/20; IV placed at [facility] and left with pain/bruising to left arm. Patient states pain began 2 days after discharge from [place]. Pt reports she was seen here on 07/09/20 and states "Ultrasound revealed a blood clot." Pt reports pain has worsen to left forearm; rates it 7/10, aching/constant, radiating up her left upper arm. Patient repotrs compliance with ABX and Naproxen without relief to pain. Patient states concern d/t family hx of blood clots. Denies fever, chills, SOB, chest pain, dizziness, headache, back/abdominal pain. Patient states warm compresses and TIFFANY wrap with minor relief. Bed locked in lowest position, side rails x 1, call light in reach. PMH: Migraines, HTN, asthma, anxiety Meds: Benazepril, amlodipine, lasix, sumatriptan NKA
--- NOTE | 2020-08-12 18:49 | NUR ---
Dr. Torres is evaluating patient at bedside.
--- NOTE | 2020-08-12 19:09 | NUR ---
Report and transfer of care given to DAXA Siddiqui.
[2020-08-12 19:21] VITALS: BP 133/85
== END 2020-08-12 19:21 | disposition home or self-care (01) ==
LOC: MED 18:30
DX: I80.8 Phlebitis and thrombophlebitis of other sites (principal); J45.909 Unspecified asthma, uncomplicated; F41.9 Anxiety disorder, unspecified; I10 Essential (primary) hypertension; Z79.899 Other long term (current) drug therapy
CPT/HCPCS: 99281

== ENCOUNTER 2020-09-27 01:44 | Emergency (ER) | payer OTHER ==
[~2020-09-27] VITALS: Ht 160 cm; Wt 65.3 kg
[2020-09-27 01:54] VITALS: BP 171/108
--- NOTE | 2020-09-27 02:01 | NUR ---
PT TAKEN TO BED 5
[2020-09-27] MEDS ORDERED: KETOROLAC 60 MG/2 ML VIAL IM ONE (02:05)
--- NOTE | 2020-09-27 02:20 | NUR ---
49 YO F BIB SELF WITH C/C OF KNEE PAIN 10/10 THAT IS CONSTANT AND WORSENS WITH ACTIVITY. PT STATES SHE WAS WITH A BAT BACK IN 2014 AND THE PAIN HAS BEEN CHRONIC. PT STATED SHE HAS AN APPT TO SEE HER ORTHO ON THE . HX:HTN RX: CLONIDINE
[2020-09-27] MEDS ORDERED: ACET-8386 PO (02:42)
[2020-09-27 02:52] VITALS: BP 171/108
== END 2020-09-27 02:52 | disposition home or self-care (01) ==
LOC: MED 01:44
DX: M25.561 Pain in right knee (principal); I10 Essential (primary) hypertension; F17.200 Nicotine dependence, unspecified, uncomplicated; Z79.899 Other long term (current) drug therapy
CPT/HCPCS: 96372; 99283; J1885

== ENCOUNTER 2020-10-12 13:52 | Emergency (ER) | payer OTHER ==
[~2020-10-12] VITALS: Ht 160 cm; Wt 65.8 kg
[~2020-10-12 13:52] MED LIST changes: +ACET-8386 PO
[2020-10-12 14:04] VITALS: BP 128/85
--- NOTE | 2020-10-12 14:08 | NUR ---
PATIENT AMBULATED TO BED 5, STEADY GAIT.
--- NOTE | 2020-10-12 14:10 | NUR ---
49 YO FEMALE BIBS C/O MIGRAINE 10/08 AND VOMITING X3DAYS. PT STATES SHE RAN OUT OF MIGRAINE MEDICATION SIMETRIX. TAKEN MEDICATION IBUPROFEN 800MG AT APPROX 11AM WITH NO RELIEF. VOMITED X1 TODAY, PT STATES VOMITING BILE D/T NOT ABLE TO EAT. PT IS CURRENTLY SENSITIVE TO LIGHT, AND REPORTS UNABLE TO SLEEP. MIGRAINE IS LOCALIZED TO LEFT SIDE OF HEAD. PERRLA, SENSATION AND ROM INTACT. A&OX4, RR EVEN AND UNLABORED. PMH: HTN, MIGRAINES NKDA
[2020-10-12] MEDS ORDERED: METOCLOPRAMIDE 10 MG/2 ML INJ VIAL IVP ONE (14:15)
[2020-10-12] MEDS ORDERED: NACL 0.9% 1,000 ML IV ONE (14:15)
[2020-10-12] MEDS ORDERED: diphenhydrAMINE 50 MG/ML VIAL IVP ONE (14:15)
--- NOTE | 2020-10-12 14:16 | NUR ---
PT AMBULATED TO BT TO PROVIDE UA SAMPLE.
[2020-10-12] MEDS ORDERED: SUMA100T1 PO (14:46)
[2020-10-12] MEDS ORDERED: ONDA8TAB87 PO (14:46)
--- NOTE | 2020-10-12 15:05 | NUR ---
DURING ADM OF BENADRYL IV PUSH, PT STATED "IT PALACIOS" MED GIVEN OVER 2MIN, SLOWLY, NOTED REDNESS TO PERIPHERAL VEIN SITE FOLLOWING ADM. PT STATES NO LONGER BURNING IT WAS ONLY DURING ADM. DENIES PAIN OR DISCOMFORT AT THIS TIME. PT STATES SHE HAS RECEIVED BENADRYL IV PUSH IN THE PAST WITH THE SAME REACTION. IV IS PATENT, FLUID NS BOLUS RUNNING FREELY WITH NO C/O DISCOMFORT AT THIS TIME.
--- NOTE | 2020-10-12 15:37 | NUR ---
PT OBSERVED IN BED RESTING AT THIS TIME, RR EVEN AND UNLABORED.
[2020-10-12 16:02] VITALS: BP 128/85
--- NOTE | 2020-10-12 16:02 | NUR ---
Patient discharged with v/s stable. Written and verbal after care instructions FOR MIGRAINE HEADACHE given and explained. Patient alert, oriented and verbalized understanding of instructions. Ambulatory with steady gait. All questions addressed prior to discharge. ID band removed. Patient advised to follow up with PMD. Rx of ZOFRAN AND IMITREX given. Patient educated on indication of medication including possible reaction and side effects. Opportunity to ask questions provided and answered.
== END 2020-10-12 16:02 | disposition home or self-care (01) ==
LOC: MED 13:52
DX: G43.909 Migraine, unspecified, not intractable, without status migrainosus (principal); R11.2 Nausea with vomiting, unspecified; J45.909 Unspecified asthma, uncomplicated; I10 Essential (primary) hypertension; F17.200 Nicotine dependence, unspecified, uncomplicated; Z98.890 Other specified postprocedural states; Z90.710 Acquired absence of both cervix and uterus
CPT/HCPCS: 81002; 81025; 96361; 96374; 96375; 99284; J1200; J2765; J7030

== ENCOUNTER 2020-10-31 05:45 | Emergency (ER) | payer OTHER ==
[~2020-10-31] VITALS: Ht 160 cm; Wt 68.0 kg
[~2020-10-31 05:45] MED LIST changes: +ONDA8TAB87 PO
[2020-10-31 05:50] VITALS: BP 128/83
--- NOTE | 2020-10-31 05:50 | NUR ---
TO BED AMBULATORY
--- NOTE | 2020-10-31 06:00 | NUR ---
Dr. Trammell with pt for MSE
[2020-10-31] MEDS ORDERED: KETOROLAC 60 MG/2 ML VIAL IM ONE (06:05)
[2020-10-31] MEDS ORDERED: PROCHLORPERAZINE 10 MG/2 ML VIAL IM ONE (06:05)
[2020-10-31] MEDS ORDERED: PROC-62 PO (06:18)
--- NOTE | 2020-10-31 07:13 | NUR ---
Report received from DAXA Oconnor and care was assumed.
[2020-10-31] MEDS ORDERED: MORPHINE SULFATE 4 MG/ML SYR IM ONE (07:20)
--- NOTE | 2020-10-31 08:12 | NUR ---
Patient resting comfortably in bed, VSS, bed locked and in the lowest position for patient's safety, and call light within reach.
[2020-10-31 08:18] VITALS: BP 104/67
--- NOTE | 2020-10-31 08:18 | NUR ---
Patient discharged with v/s stable. Written and verbal after care instructions given and explained. Patient alert, oriented and verbalized understanding of instructions. Ambulatory with steady gait. All questions addressed prior to discharge. ID band removed. Patient advised to follow up with PMD. Rx of prochlorperazine given. Patient educated on indication of medication including possible reaction and side effects. Opportunity to ask questions provided and answered.
== END 2020-10-31 08:18 | disposition home or self-care (01) ==
LOC: MED 05:45
DX: G43.909 Migraine, unspecified, not intractable, without status migrainosus (principal); F17.290 Nicotine dependence, other tobacco product, uncomplicated
CPT/HCPCS: 96372; 99285; J0780; J1885; J2270

== ENCOUNTER 2020-11-12 19:22 | Emergency (ER) | payer OTHER ==
[~2020-11-12] VITALS: Ht 162.6 cm; Wt 63.5 kg
[~2020-11-12 19:22] MED LIST changes: +PROC-62 PO
[2020-11-12 19:34] VITALS: BP 152/100
--- NOTE | 2020-11-12 19:39 | NUR ---
PATIENT SENT TO LOBBY
[2020-11-12] MEDS ORDERED: IBUP-1842 PO (20:03)
[2020-11-12] MEDS ORDERED: CEPH-588 PO (20:03)
--- NOTE | 2020-11-12 20:19 | NUR ---
SEEN BY NAVEEN NO NURSING INTERVENTIONS NEEDED FOR PATIENT
--- NOTE | 2020-11-12 20:19 | NUR ---
Patient discharged with v/s stable. Written and verbal after care instructions given and explained. Patient alert, oriented and verbalized understanding of instructions. Ambulatory with steady gait. All questions addressed prior to discharge. ID band removed. Patient advised to follow up with PMD. Rx of KEFLEX AND MOTRIN given. Patient educated on indication of medication including possible reaction and side effects. Opportunity to ask questions provided and answered.
[2020-11-12 20:22] VITALS: BP 152/100
== END 2020-11-12 20:19 | disposition home or self-care (01) ==
LOC: MED 19:22
DX: H60.12 Cellulitis of left external ear (principal)
CPT/HCPCS: 99283

== ENCOUNTER 2021-01-09 15:47 | Emergency (ER) | payer OTHER ==
[~2021-01-09] VITALS: Ht 160 cm; Wt 63.5 kg
[~2021-01-09 15:47] MED LIST changes: +IBUP-1842 PO; +ONDA-188 PO; -ONDA-24 PO
[2021-01-09 15:53] VITALS: BP 140/100
[2021-01-09] MEDS ORDERED: ACETAMINOPHEN 325 MG TAB PO ONE (16:00)
[2021-01-09] MEDS ORDERED: NACL 0.9% 1,000 ML IV ONE ×2 (16:00→16:50)
--- NOTE | 2021-01-09 16:00 | NUR ---
PT AMBULATED TO ER BED 2 WITH A STEADY GAIT.
[2021-01-09] MEDS ORDERED: ONDANSETRON 4 MG/2 ML VIAL IVP ONE (16:05)
[2021-01-09 16:26] LABS: BASOPHILS # (AUTO) 0.1 K/uL (0.00-0.22); BASOPHILS % (AUTO) 0.6 % (0.0-2.0); EOSINOPHILS # (AUTO) 0.3 K/uL (0-0.4); EOSINOPHILS % (AUTO) 3.2 % (0.0-4.0); HEMATOCRIT 42.1 % (36-48); HEMOGLOBIN 14.2 g/dL (12.0-16.0); LYMPHOCYTES # (AUTO) 1.5 K/uL (2.5-16.5); LYMPHOCYTES % (AUTO) 17.4 % (20.5-51.1); MEAN CORPUSCULAR HEMOGLOBIN 30 pg (27-31); MEAN CORPUSCULAR HGB CONC 34 g/dL (33-37); MEAN CORPUSCULAR VOLUME 88.6 fL (80-94); MONOCYTES # (AUTO) 0.4 K/uL (0.8-1.0); MONOCYTES % (AUTO) 5.1 % (1.7-9.3); NEUTROPHILS # (AUTO) 6.4 K/uL (1.8-7.7); NEUTROPHILS % (AUTO) 73.7 % (42.2-75.2); PLATELET COUNT (AUTO) 320 K/uL (140-450); RED BLOOD CELL COUNT(AUTO) 4.75 MIL/uL (4.20-5.40); RED CELL DISTRIBUTION WIDTH 14.3 % (11.6-13.7); WHITE BLOOD COUNT (AUTO) 8.6 K/uL (4.8-10.8)
--- NOTE | 2021-01-09 16:29 | NUR ---
50 Y/O FEMALE C/O GENERALIZED ABDOMINAL PAIN, N/V/D , AGUILAR 10/ , WEAKNESS X 2 DAYS. PMH: HTN, ASTHMA, MIGRAINE,HYSTERECTOMY NKA
[2021-01-09 16:39] LABS: ALBUMIN 3.2 g/dL (3.4-5.0); ANION GAP 11.1 (8-16); CARBON DIOXIDE 26.5 mmol/L (21-32); POTASSIUM 3.6 mmol/L (3.5-5.1); TOTAL BILIRUBIN 0.2 mg/dL (0.0-1.0)
--- NOTE | 2021-01-09 17:16 | NUR ---
PT AMBULATED TO RESTROOM FOR UA COLLECTION.
--- NOTE | 2021-01-09 17:20 | NUR ---
PT AMBULTED TO ER BED 2 WITH A STEADY GAIT.
[2021-01-09] MEDS ORDERED: ACET-2619 PO (17:27)
[2021-01-09] MEDS ORDERED: ONDA-188 PO (17:27)
[2021-01-09] MEDS ORDERED: CEPH-588 PO (17:27)
--- NOTE | 2021-01-09 17:40 | NUR ---
PT RESTING, VSS, WILL CONTINUE TO MONITOR.
[2021-01-09 18:27] VITALS: BP 132/89
--- NOTE | 2021-01-09 18:27 | NUR ---
Patient discharged with v/s stable. Written and verbal after care instructions given UTI, DIARRHEA, AD VOMITING and explained. Patient alert, oriented and verbalized understanding of instructions. Ambulatory with steady gait. All questions addressed prior to discharge. ID band removed. Patient advised to follow up with PMD. Rx of TYNENOL, KEFLEX, AND ZOFRAN given. Patient educated on indication of medication including possible reaction and side effects. Opportunity to ask questions provided and answered.
== END 2021-01-09 18:27 | disposition home or self-care (01) ==
LOC: MED 15:47
DX: N39.0 Urinary tract infection, site not specified (principal); R51.9 Headache, unspecified; R11.10 Vomiting, unspecified; R19.7 Diarrhea, unspecified; G43.909 Migraine, unspecified, not intractable, without status migrainosus; Z98.890 Other specified postprocedural states; Z90.710 Acquired absence of both cervix and uterus
CPT/HCPCS: 36415; 80053; 81002; 81025; 83690; 85025; 96361; 96374; 99283; J2405; J7030

== ENCOUNTER 2021-01-28 22:26 | Emergency (ER) | payer OTHER ==
[~2021-01-28] VITALS: Ht 160 cm; Wt 61.2 kg
[~2021-01-28 22:26] MED LIST changes: +ACET-2619 PO
[2021-01-28 22:54] VITALS: BP 169/114
--- NOTE | 2021-01-28 23:21 | NUR ---
Dr. Maguire examining patient.
[2021-01-28] MEDS ORDERED: PROCHLORPERAZINE 5 MG TAB PO ONE (23:25)
[2021-01-28] MEDS ORDERED: KETOROLAC 30 MG/ML VIAL IM ONE (23:25)
[2021-01-28] MEDS ORDERED: HYDROcodone/APAP 5/325 MG 1 TAB TAB PO ONE (23:25)
[2021-01-29] LABS: BASOPHILS # (AUTO) 0.1 K/uL (0.00-0.22); BASOPHILS % (AUTO) 1.1 % (0.0-2.0); EOSINOPHILS # (AUTO) 0.4 K/uL (0-0.4); EOSINOPHILS % (AUTO) 5.9 % (0.0-4.0); HEMATOCRIT 39.9 % (36-48); HEMOGLOBIN 13.6 g/dL (12.0-16.0); LYMPHOCYTES # (AUTO) 2.1 K/uL (2.5-16.5); LYMPHOCYTES % (AUTO) 33.3 % (20.5-51.1); MEAN CORPUSCULAR HEMOGLOBIN 30 pg (27-31); MEAN CORPUSCULAR HGB CONC 34 g/dL (33-37); MONOCYTES # (AUTO) 0.4 K/uL (0.8-1.0); MONOCYTES % (AUTO) 6.6 % (1.7-9.3); NEUTROPHILS # (AUTO) 3.4 K/uL (1.8-7.7); NEUTROPHILS % (AUTO) 53.1 % (42.2-75.2); PLATELET COUNT (AUTO) 337 K/uL (140-450); RED BLOOD CELL COUNT(AUTO) 4.53 MIL/uL (4.20-5.40); WHITE BLOOD COUNT (AUTO) 6.4 K/uL (4.8-10.8)
[2021-01-29 00:37] LABS: ALBUMIN 3.4 g/dL (3.4-5.0); ANION GAP 13.5 (8-16); CARBON DIOXIDE 28.6 mmol/L (21-32); POTASSIUM 4.1 mmol/L (3.5-5.1); TOTAL BILIRUBIN 0.1 mg/dL (0.0-1.0)
--- NOTE | 2021-01-29 01:07 | NUR ---
PATIENT C/O AGUILAR PAIN 12/08-- ERMD MADE AWARE
[2021-01-29] MEDS ORDERED: NIFEdipine 10 MG CAPLF PO SCH (01:15)
[2021-01-29 02:13] VITALS: BP 107/60
--- NOTE | 2021-01-29 02:13 | NUR ---
Patient discharged with v/s stable. Written and verbal after care instructions given and explained. Patient verbalized understanding. Ambulatory with steady gait. ID band removed. All questions addressed prior to discharge. Advised to follow up with PMD.
== END 2021-01-29 02:13 | disposition home or self-care (01) ==
LOC: MED 22:26
DX: R51.9 Headache, unspecified (principal); R07.9 Chest pain, unspecified; I10 Essential (primary) hypertension; F41.9 Anxiety disorder, unspecified; G43.909 Migraine, unspecified, not intractable, without status migrainosus
CPT/HCPCS: 36415; 71045; 80053; 84484; 85025; 93005; 96372; 99285; J1885; Q0092; Q0164

== ENCOUNTER 2021-03-01 02:18 | Emergency (ER) | payer OTHER ==
[~2021-03-01] VITALS: Ht 160 cm; Wt 61.2 kg
[2021-03-01 02:46] VITALS: BP 132/100
--- NOTE | 2021-03-01 02:49 | NUR ---
to lobby a/w bed ambulatory
[2021-03-01] MEDS ORDERED: NACL 0.9% 250 ML IV ONE (03:00)
[2021-03-01] MEDS ORDERED: diphenhydrAMINE 50 MG/ML VIAL IVP ONE (03:00)
[2021-03-01] MEDS ORDERED: KETOROLAC 30 MG/ML VIAL IVP ONE (03:00)
[2021-03-01] MEDS ORDERED: PROCHLORPERAZINE 10 MG/2 ML VIAL IVP ONE (03:00)
--- NOTE | 2021-03-01 04:00 | NUR ---
MEDICATED PER ERMDS ORDER , TOLERATED WELL
[2021-03-01] MEDS ORDERED: diphenhydrAMINE 50 MG/ML VIAL ONE (04:14)
[2021-03-01] MEDS ORDERED: KETOROLAC 30 MG/ML VIAL ONE (04:15)
[2021-03-01] MEDS ORDERED: PROCHLORPERAZINE 10 MG/2 ML VIAL ONE (04:15)
[2021-03-01 06:19] VITALS: BP 122/98
== END 2021-03-01 04:00 | disposition home or self-care (01) ==
LOC: MED 02:18
DX: G43.909 Migraine, unspecified, not intractable, without status migrainosus (principal); R11.0 Nausea; R51.9 Headache, unspecified; I10 Essential (primary) hypertension; Z79.899 Other long term (current) drug therapy
CPT/HCPCS: 96361; 96374; 96375; 99284; J0780; J1200; J1885; J7030

== ENCOUNTER 2021-04-03 19:51 | Emergency (ER) | payer OTHER ==
[~2021-04-03] VITALS: Ht 160 cm; Wt 66.0 kg
[2021-04-03 20:03] VITALS: BP 165/101
--- NOTE | 2021-04-03 20:12 | NUR ---
PT TAKEN TO BED 12.
--- NOTE | 2021-04-03 21:10 | NUR ---
50 YO/F BIB SELF W C/O RUQ ABDOMINAL PAIN 9/10 PRESSURE CONSTANT W INT SHARP EPISODES, NON-RAD X3 DAYS WORSENING WHEN COUGHING OR DEEP BREATHING, + L SIDED HEADACHE PULSATING/ PRESSURE 9/10, + NAUSEA. PT REPORTS BEING SEEN AT AN URGENT CARE EARLIER TODAY AND TOLD TO COME TO ER FOR POSSIBLE GALL STONES. PT WAS GIVEN TORADOL AT 1600 W/O RELIEF. PT DENIES ANY CHEST PAIN, SOB, V/D, FEVERS, CHILLS, CONSTIPATION, OR DIZZYNESS. PT LAYING IN BED IN L LATERAL POSITION W X1 SIDERAIL UP FOR PT SAFETY. VSS. CONNECTED TO MONITOR.
[2021-04-03] MEDS ORDERED: MORPHINE SULFATE 4 MG/ML SYR IVP ONE (21:25)
--- NOTE | 2021-04-03 21:29 | NUR ---
PT AMBULATED TO BATHROOM W STEADY WAIT.
--- NOTE | 2021-04-03 21:50 | NUR ---
URINE SAMPLE AND BLOOD DRAW COLLECTED AND SENT TO LAB.
[2021-04-03] MEDS ORDERED: NACL 0.9% 1,000 ML IV ONE (22:00)
[2021-04-03 22:14] LABS: APPEARANCE,URINE CLOUDY (CLEAR); BILIRUBIN,URINE NEGATIVE (NEGATIVE); BLOOD, URINE TRACE-I (NEGATIVE); COLOR,URINE YELLOW (YELLOW); LEUKOCYTE ESTERASE ,URINE NEGATIVE (NEGATIVE); NITRITE, URINE POSITIVE (NEGATIVE); PH,URINE 6.5 (5.0-9.0); UGLUCOSE NEGATIVE (NEGATIVE)
--- NOTE | 2021-04-03 22:21 | NUR ---
XRAY AT BEDSIDE
--- NOTE | 2021-04-03 22:37 | NUR ---
PT REPORTS ABDOMINAL PAIN IMPROVEMENT + MILD HEADACHE IMPROVEMENT.
[2021-04-03 22:38] LABS: ALBUMIN 3.1 g/dL (3.4-5.0); CARBON DIOXIDE 27.7 mmol/L (21-32); CREATININE 1.3 mg/dL (0.6-1.3); POTASSIUM 3.7 mmol/L (3.5-5.1); TOTAL BILIRUBIN 0.1 mg/dL (0.0-1.0)
[2021-04-03 22:56] LABS: WHITE BLOOD COUNT (AUTO) 5.6 K/uL (4.8-10.8)
[2021-04-03 22:57] LABS: EOSINOPHILS % (AUTO) 5.2 % (0.0-4.0); HEMOGLOBIN 13.5 g/dL (12.0-16.0); LYMPHOCYTES % (AUTO) 31.1 % (20.5-51.1); MEAN CORPUSCULAR HEMOGLOBIN 30 pg (27-31); MEAN CORPUSCULAR HGB CONC 34 g/dL (33-37); MEAN CORPUSCULAR VOLUME 88.9 fL (80-94); MONOCYTES % (AUTO) 7.6 % (1.7-9.3); NEUTROPHILS % (AUTO) 54.5 % (42.2-75.2); PLATELET COUNT (AUTO) 275 K/uL (140-450); RED CELL DISTRIBUTION WIDTH 13.7 % (11.6-13.7)
[2021-04-03 22:58] LABS: BASOPHILS # (AUTO) 0.1 K/uL (0.00-0.22); BASOPHILS % (AUTO) 1.6 % (0.0-2.0); EOSINOPHILS # (AUTO) 0.3 K/uL (0-0.4); LYMPHOCYTES # (AUTO) 1.8 K/uL (2.5-16.5); MONOCYTES # (AUTO) 0.4 K/uL (0.8-1.0); NEUTROPHILS # (AUTO) 3.1 K/uL (1.8-7.7)
[2021-04-03 23:36] LABS: RBC,URINE 0-5 /HPF (0-5)
[2021-04-03] MEDS ORDERED: ENALAPRILAT 2.5 MG/2 ML VIAL IVP ONE (23:45)
--- NOTE | 2021-04-03 23:49 | NUR ---
PT LAYING IN BED LOCKED IN LOWEST POSITION W X1 SIDERAIL UP. PT REPORTS ABDOMEN FEELING OK, BUT ONGOING HEADACHE. ERMD AWARE. PT VSS.
[2021-04-03] MEDS ORDERED: cefTRIAXone 1,000 MG VIAL ONE (23:52)
[2021-04-04] MEDS ORDERED: NITR100C7 PO (00:12)
[2021-04-04] MEDS ORDERED: PHEN-1877 PO (00:12)
--- NOTE | 2021-04-04 00:20 | NUR ---
BP RE-ASSESSED 124/83
--- NOTE | 2021-04-04 00:22 | NUR ---
PT REPORTS ONGOING HEADACHE. ERMD AWARE. PT EDUCTAED ON MORHINE SIDE EFFECTS. PT REPORTS SHE WILL NOT BE DRIVING HOME.
[2021-04-04] MEDS ORDERED: MORPHINE SULFATE 4 MG/ML SYR IVP ONE (00:25)
[2021-04-04] MEDS ORDERED: ONDANSETRON 4 MG/2 ML VIAL IVP ONE (00:25)
[2021-04-04 00:52] VITALS: BP 124/83
--- NOTE | 2021-04-04 00:52 | NUR ---
Patient discharged with v/s stable. Written and verbal after care instructions given and explained. Patient alert, oriented and verbalized understanding of instructions. Ambulatory with steady gait. All questions addressed prior to discharge. ID band removed. Patient advised to follow up with PMD. Rx of PYRIDIUM, MACROBID given. Patient educated on indication of medication including possible reaction and side effects. Opportunity to ask questions provided and answered.
== END 2021-04-04 00:52 | disposition home or self-care (01) ==
LOC: MED 19:51
DX: N39.0 Urinary tract infection, site not specified (principal); I10 Essential (primary) hypertension; J45.909 Unspecified asthma, uncomplicated; G43.909 Migraine, unspecified, not intractable, without status migrainosus; F41.9 Anxiety disorder, unspecified; Z79.899 Other long term (current) drug therapy
CPT/HCPCS: 36415; 71045; 80053; 81001; 83690; 84484; 84703; 85025; 87086; 93005; 96361; 96365; 96375; 96376; 99284; J0696; J2270; J2405; J3490; J7030; Q0092

== ENCOUNTER 2021-04-05 13:34 | Emergency (ER) | payer OTHER ==
[~2021-04-05] VITALS: Ht 160 cm; Wt 66.7 kg
[~2021-04-05 13:34] MED LIST changes: +NITR100C7 PO; +PHEN-1877 PO
[2021-04-05 13:49] VITALS: BP 166/104
--- NOTE | 2021-04-05 14:00 | NUR ---
50 Y/O FEMALE C/O CHRONIC HEADACHE X 12 YEARS 09/07. STATES SHE DOES NOT TAKE HER HTN MEDICATION. AOX4, ABLE TO MAKE NEEDS KNOWN. DENIES ANY VISION CHANGES. DENIES N/V/D/CP AT THIS TIME. PMH: HTN, MIGRAINES HOME MEDS: DOESN'T TAKE HER RX MEDICATION NKA
[2021-04-05] MEDS ORDERED: diphenhydrAMINE 50 MG/ML VIAL IVP ONE (14:35)
[2021-04-05] MEDS ORDERED: HYDROcodone/APAP 5/325 MG 1 TAB TAB PO ONE (14:35)
[2021-04-05] MEDS ORDERED: METOCLOPRAMIDE 10 MG/2 ML INJ VIAL IVP ONE (14:35)
[2021-04-05] MEDS ORDERED: NACL 0.9% 1,000 ML IV ONE (15:35)
[2021-04-05] MEDS ORDERED: MORPHINE SULFATE 4 MG/ML SYR IVP ONE (15:35)
[2021-04-05 16:21] LABS: APPEARANCE,URINE CLEAR (CLEAR); BILIRUBIN,URINE NEGATIVE (NEGATIVE); BLOOD, URINE NEGATIVE (NEGATIVE); COLOR,URINE YELLOW (YELLOW); LEUKOCYTE ESTERASE ,URINE NEGATIVE (NEGATIVE); NITRITE, URINE NEGATIVE (NEGATIVE); UGLUCOSE NEGATIVE (NEGATIVE)
[2021-04-05 17:10] VITALS: BP 120/72
== END 2021-04-05 17:10 | disposition home or self-care (01) ==
LOC: MED 13:34
DX: G43.909 Migraine, unspecified, not intractable, without status migrainosus (principal); J45.909 Unspecified asthma, uncomplicated; I10 Essential (primary) hypertension; Z79.899 Other long term (current) drug therapy; Z79.2 Long term (current) use of antibiotics; Z79.1 Long term (current) use of non-steroidal anti-inflammatories (NSAID); Z79.891 Long term (current) use of opiate analgesic
CPT/HCPCS: 70450; 81003; 81025; 96361; 96374; 96375; 99284; J1200; J2270; J2765; J7030

== ENCOUNTER 2021-07-31 18:42 | Emergency (ER) | payer OTHER ==
[~2021-07-31] VITALS: Ht 160 cm; Wt 67.1 kg
[2021-07-31 19:20] VITALS: BP 119/77
--- NOTE | 2021-07-31 19:24 | NUR ---
PATIENT TO LOBBY
--- NOTE | 2021-07-31 19:42 | NUR ---
ERMD ASSESSING PT IN TRIAGE ROOM
[2021-07-31] MEDS ORDERED: PROCHLORPERAZINE 10 MG/2 ML VIAL IM ONE (19:45)
[2021-07-31] MEDS ORDERED: KETOROLAC 15 MG/ML VIAL IM ONE (19:45)
[2021-07-31] MEDS ORDERED: NICO1PAT16 TD (19:50)
[2021-07-31] MEDS ORDERED: METOCLOPRAMIDE 10 MG/2 ML INJ VIAL IVP ONE (21:40)
[2021-07-31] MEDS ORDERED: MORPHINE SULFATE 4 MG/ML SYR IVP ONE (21:40)
--- NOTE | 2021-07-31 21:41 | NUR ---
PATIENT CALLED FOR EKG NO ANSWER
--- NOTE | 2021-07-31 22:08 | NUR ---
PATIENT CALLED- NO ANSWER
--- NOTE | 2021-07-31 22:08 | NUR ---
PATIENT ELOPED FROM FACILITY. DISCHARGE INSTRUCTIONS NOT GIVEN TO PATIENT. DR. BUENO NOTIFIED.
== END 2021-07-31 22:08 | disposition left against medical advice (07) ==
LOC: MED 18:42
DX: G43.909 Migraine, unspecified, not intractable, without status migrainosus (principal); R11.2 Nausea with vomiting, unspecified; J45.909 Unspecified asthma, uncomplicated; I10 Essential (primary) hypertension; F17.210 Nicotine dependence, cigarettes, uncomplicated; Z90.710 Acquired absence of both cervix and uterus; Z98.890 Other specified postprocedural states; Z79.899 Other long term (current) drug therapy; Z71.6 Tobacco abuse counseling
CPT/HCPCS: 96372; 99284; J0780; J1885; J2270; J2765

== ENCOUNTER 2021-08-29 08:39 | Emergency (ER) | payer OTHER ==
[~2021-08-29] VITALS: Ht 157.5 cm; Wt 65.8 kg
[~2021-08-29 08:39] MED LIST changes: +NICO1PAT16 TD
[2021-08-29 08:55] VITALS: BP 135/96
--- NOTE | 2021-08-29 08:58 | NUR ---
PT AMBULATED TO ER ROOM 2
--- NOTE | 2021-08-29 09:10 | NUR ---
Pt coming from home ambulatory with steady gait. Pt is A&Ox4. Skin intact. Pt c/o migraine headache for 2 days. Pt states she has hx of migraines but ran out of her medication (Sumatriptan). Rates headache 10/10 non-radiating. Pt also has hx of HTN. VSS. No blurred vision. No stroke symptoms. NKA. No chest pain and no sob. Denies n/v.
[2021-08-29] MEDS: NACL 0.9% 1,000 ML IV ONE (09:42)
[2021-08-29] MEDS: diphenhydrAMINE 50 MG/ML VIAL IVP ONE (09:46)
[2021-08-29] MEDS: PROCHLORPERAZINE 10 MG/2 ML VIAL IVP ONE (09:48)
[2021-08-29] MEDS: KETOROLAC 30 MG/ML VIAL IVP ONE (09:51)
[2021-08-29] MEDS ORDERED: IMI50 PO (10:53)
--- NOTE | 2021-08-29 10:53 | NUR ---
The patient's care was reviewed and supervised by [facility] ED, RN.
[2021-08-29 11:04] VITALS: BP 136/87
--- NOTE | 2021-08-29 11:04 | NUR ---
Patient discharged with v/s stable. Written and verbal after care instructions given. Patient alert, oriented and verbalized understanding of instructions. Ambulatory with steady gait. All questions addressed prior to discharge. ID band removed. Patient advised to follow up with PMD. Rx of imitrex given. Opportunity to ask questions provided and answered.
== END 2021-08-29 11:04 | disposition home or self-care (01) ==
LOC: MED 08:39
DX: G43.909 Migraine, unspecified, not intractable, without status migrainosus (principal); J45.909 Unspecified asthma, uncomplicated; I10 Essential (primary) hypertension
CPT/HCPCS: 81025; 96361; 96374; 96375; 99284; J0780; J1200; J1885; J7030

== ENCOUNTER 2021-10-08 07:36 | Emergency (ER) | payer OTHER ==
[~2021-10-08] VITALS: Ht 160 cm; Wt 65.8 kg
[~2021-10-08 07:36] MED LIST changes: +IMI50 PO
[2021-10-08 07:45] VITALS: BP 150/93
--- NOTE | 2021-10-08 07:51 | NUR ---
PT AMB TO BED 1.
--- NOTE | 2021-10-08 08:03 | NUR ---
50 Y/O FEMALE C/O N/V X1DAY. +SENSITIVITY TO LIGHT. DENIES FEVER/CHILLS. PMH: HTN, ANXIETY, ASTHMA, MIGRAINE,PARTIAL HYSTERECTOMY. TUBALIGATION NKA
--- NOTE | 2021-10-08 08:15 | NUR ---
DR. CHAN AT PT BEDSIDE FOR FURTHER EVALUATION.
[2021-10-08] MEDS ORDERED: NACL 0.9% 1,000 ML IV ONE (08:20)
[2021-10-08] MEDS ORDERED: METOCLOPRAMIDE 10 MG/2 ML INJ VIAL IVP ONE (08:20)
[2021-10-08] MEDS ORDERED: KETOROLAC 30 MG/ML VIAL IVP ONE (08:20)
[2021-10-08] MEDS ORDERED: diphenhydrAMINE 50 MG/ML VIAL IVP ONE (08:20)
[2021-10-08] MEDS ORDERED: HYDROcodone/APAP 5/325 MG 1 TAB TAB PO ONE (09:30)
--- NOTE | 2021-10-08 10:45 | NUR ---
Patient discharged with v/s stable. Written and verbal after care instructions given MIGRAINE HEADACHE and explained. Patient verbalized understanding. Ambulatory with steady gait. All questions addressed prior to discharge. Advised to follow up with PMD.
== END 2021-10-08 10:45 | disposition home or self-care (01) ==
LOC: MED 07:36
DX: G43.909 Migraine, unspecified, not intractable, without status migrainosus (principal); I10 Essential (primary) hypertension; J45.909 Unspecified asthma, uncomplicated
CPT/HCPCS: 96361; 96374; 96375; 99284; J1200; J1885; J2765; J7030

== ENCOUNTER 2021-10-16 20:42 | Emergency (ER) | payer OTHER ==
[~2021-10-16] VITALS: Ht 160 cm; Wt 66.5 kg
[2021-10-16 20:58] VITALS: BP 165/103
--- NOTE | 2021-10-16 21:01 | NUR ---
PT TAKEN TO LOBBY
--- NOTE | 2021-10-16 23:02 | NUR ---
PATIENT DOESNT WANT TO WAIT,AND GOES HOME. PATIENT LEFT WITHOUT BEING SEEN BY DR. JESUS. NO FURTHER CARE PROVIDED FOR PATIENT.
== END 2021-10-16 23:02 | disposition left against medical advice (07) ==
LOC: MED 20:42
DX: R51.9 Headache, unspecified (principal); Z53.21 Procedure and treatment not carried out due to patient leaving prior to being seen by health care provider

== ENCOUNTER 2021-10-18 17:18 | Emergency (ER) | payer OTHER ==
[~2021-10-18] VITALS: Ht 160 cm; Wt 66.7 kg
[2021-10-18 17:30] VITALS: BP 141/99
[2021-10-18] MEDS ORDERED: PROCHLORPERAZINE 10 MG/2 ML VIAL IVP ONE (17:50)
[2021-10-18] MEDS ORDERED: KETOROLAC 30 MG/ML VIAL IM ONE (17:50)
[2021-10-18] MEDS ORDERED: NACL 0.9% 1,000 ML IV ONE (17:50)
[2021-10-18] MEDS ORDERED: diphenhydrAMINE 50 MG/ML VIAL IVP ONE (17:50)
--- NOTE | 2021-10-18 17:54 | NUR ---
PATIENT AMBULATED TO BED 2
--- NOTE | 2021-10-18 18:00 | NUR ---
50 y/o female, c/o constant temple, neck pain, nausea, blurry vision, photophobia, and phonophobia since last night. pt denies anyone sick at home with same s/s, denies fever, cough, cp, vomiting, diarrhea, sore throat or sob. pt states she took imitrex with no relief this morning. pt states she currently has neurology appointment on 11/18/21. pt a&ox4, ambulates with assist, lungs clear, hr even and regular. bed down, lights off, rails x2. pmh: asthma, htn, migraines nka med: see list
[2021-10-18] MEDS ORDERED: KETOROLAC 30 MG/ML VIAL IVP ONE (18:30)
--- NOTE | 2021-10-18 18:41 | NUR ---
Patient appears to be resting in bed, lights turned off per request and comfort measures for temple. Vital Signs within normal limits. Respirations even and unlabored.
[2021-10-18] MEDS ORDERED: IBUP-2213 PO (19:23)
[2021-10-18] MEDS ORDERED: ACET-8386 PO (19:23)
--- NOTE | 2021-10-18 19:33 | NUR ---
Pt report given to Sharif MITTAL. Transfer of care at this time.
[2021-10-18 19:51] VITALS: BP 122/85
--- NOTE | 2021-10-20 10:50 | NUR ---
LATE ENTRY- IV NORMAL SALINE DISCONTINUED AT 1951.
== END 2021-10-18 19:52 | disposition home or self-care (01) ==
LOC: MED 17:18
DX: G43.909 Migraine, unspecified, not intractable, without status migrainosus (principal); J45.909 Unspecified asthma, uncomplicated; I10 Essential (primary) hypertension; Z90.710 Acquired absence of both cervix and uterus
CPT/HCPCS: 96361; 96374; 96375; 99284; J0780; J1200; J1885; J7030

== ENCOUNTER 2021-11-28 09:03 | Emergency (ER) | payer OTHER ==
[~2021-11-28] VITALS: Ht 160 cm; Wt 65.8 kg
[~2021-11-28 09:03] MED LIST changes: +IBUP-2213 PO
[2021-11-28 09:08] VITALS: BP 150/90
--- NOTE | 2021-11-28 09:51 | NUR ---
50 y/o female biba from home, pt presents to ed with new onset of abd pain, nausea this morning. 10 pain, pt was given 100mcg fentanyl ivp en route by chief embalmer. skin is pink/warm/dry. a&o x4 with even and steady gait. lungs clear bl, heart rate even and regular. pt denies dysuria, hematuria, urinary frequency or retention, or anyone sick in the household with the same symptoms. pt denies any fever, cp, sob, or cough at this time pmh: htn, migraines, anxiety nka med: 100mcg fentanyl ivp en route
--- NOTE | 2021-11-28 11:00 | NUR ---
PT AMBULATED TO BED 7
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
--- NOTE | 2021-11-28 12:14 | NUR ---
US AT BEDSIDE
[2021-11-28 12:36] LABS: BASOPHILS # (AUTO) 0.1 K/uL (0.00-0.22); BASOPHILS % (AUTO) 0.6 % (0.0-2.0); EOSINOPHILS # (AUTO) 0.1 K/uL (0-0.4); HEMATOCRIT 48.1 % (36-48); LYMPHOCYTES # (AUTO) 1.1 K/uL (2.5-16.5); LYMPHOCYTES % (AUTO) 9.3 % (20.5-51.1); MEAN CORPUSCULAR HEMOGLOBIN 30 pg (27-31); MEAN CORPUSCULAR HGB CONC 33 g/dL (33-37); MONOCYTES # (AUTO) 0.7 K/uL (0.8-1.0); MONOCYTES % (AUTO) 5.9 % (1.7-9.3); NEUTROPHILS # (AUTO) 9.9 K/uL (1.8-7.7); NEUTROPHILS % (AUTO) 83.2 % (42.2-75.2); PLATELET COUNT (AUTO) 308 K/uL (140-450); RED BLOOD CELL COUNT(AUTO) 5.29 MIL/uL (4.20-5.40); RED CELL DISTRIBUTION WIDTH 13.6 % (11.6-13.7); WHITE BLOOD COUNT (AUTO) 11.9 K/uL (4.8-10.8)
[2021-11-28 12:58] LABS: ALBUMIN 3.4 g/dL (3.4-5.0); ANION GAP 14.6 (8-16); CARBON DIOXIDE 25.8 mmol/L (21-32); CREATININE 0.9 mg/dL (0.6-1.3); POTASSIUM 4.4 mmol/L (3.5-5.1); TOTAL BILIRUBIN 0.3 mg/dL (0.0-1.0)
[2021-11-28 13:01] LABS: APPEARANCE,URINE SL CLOUDY (CLEAR); BILIRUBIN,URINE NEGATIVE (NEGATIVE); BLOOD, URINE NEGATIVE (NEGATIVE); COLOR,URINE YELLOW (YELLOW); LEUKOCYTE ESTERASE ,URINE NEGATIVE (NEGATIVE); NITRITE, URINE NEGATIVE (NEGATIVE); UGLUCOSE NEGATIVE (NEGATIVE)
[2021-11-28] MEDS ORDERED: ALUMINUM HYD/MAG/SIMETHICONE 30 ML UDC PO ONE (13:25)
[2021-11-28] MEDS ORDERED: MORPHINE SULFATE 4 MG/ML SYR IVP ONE (13:25)
[2021-11-28] MEDS ORDERED: MORPHINE SULFATE 4 MG/ML SYR IM ONE (13:45)
[2021-11-28] MEDS ORDERED: ONDA-188 PO (14:25)
[2021-11-28] MEDS ORDERED: MAG355OR2 PO (14:26)
[2021-11-28 15:05] VITALS: BP 118/75
--- NOTE | 2021-11-28 15:05 | NUR ---
Patient discharged with v/s stable. Written and verbal after care instructions FOR GASTRITIS AND ABDOMINAL PAIN given and explained. Patient alert, oriented and verbalized understanding of instructions. Ambulatory with steady gait. All questions addressed prior to discharge. ID band removed. Patient advised to follow up with PMD. Rx of ZOFRAN AND MAALOX MAX STRENGTH SUSP given. Opportunity to ask questions provided and answered.
--- NOTE | 2021-11-28 15:08 | NUR ---
The patient's care was reviewed and supervised by ED Agency Nurse 9, RN, RN.
== END 2021-11-28 15:05 | disposition home or self-care (01) ==
LOC: MED 09:03
DX: K29.70 Gastritis, unspecified, without bleeding (principal); I10 Essential (primary) hypertension; J45.909 Unspecified asthma, uncomplicated; Z79.899 Other long term (current) drug therapy; Z90.710 Acquired absence of both cervix and uterus; Z98.51 Tubal ligation status
CPT/HCPCS: 36415; 76705; 80053; 81003; 81025; 83690; 85025; 96372; 99285; J2270; Q0092

== ENCOUNTER 2022-02-08 12:20 | Emergency (ER) | payer OTHER ==
[~2022-02-08] VITALS: Ht 160 cm; Wt 68.0 kg
[~2022-02-08 12:20] MED LIST changes: +MAG355OR2 PO; -PROC-62 PO; +PROC-87 PO
[2022-02-08 12:33] VITALS: BP_SYST 147; BP_SYST 5; BP_DIAS 106; BP_DIAS 3
--- NOTE | 2022-02-08 13:00 | NUR ---
BIB SELF C/O 810 MID CHEST PAIN, DIZZINESS, AGUILAR X 2 DAYS. PMH: HTN, ASTHMA, HEPATIC CYST , RENAL CYST
[2022-02-08 14:59] LABS: BASOPHILS # (AUTO) 0.1 K/uL (0.00-0.22); BASOPHILS % (AUTO) 1.1 % (0.0-2.0); EOSINOPHILS # (AUTO) 0.3 K/uL (0-0.4); EOSINOPHILS % (AUTO) 4.2 % (0.0-4.0); HEMATOCRIT 48.8 % (36-48); HEMOGLOBIN 16.3 g/dL (12.0-16.0); LYMPHOCYTES # (AUTO) 1.5 K/uL (2.5-16.5); LYMPHOCYTES % (AUTO) 23.8 % (20.5-51.1); MEAN CORPUSCULAR HEMOGLOBIN 31 pg (27-31); MEAN CORPUSCULAR HGB CONC 33 g/dL (33-37); MEAN CORPUSCULAR VOLUME 91.5 fL (80-94); MONOCYTES # (AUTO) 0.4 K/uL (0.8-1.0); MONOCYTES % (AUTO) 6.5 % (1.7-9.3); NEUTROPHILS % (AUTO) 64.4 % (42.2-75.2); PLATELET COUNT (AUTO) 341 K/uL (140-450); RED BLOOD CELL COUNT(AUTO) 5.34 MIL/uL (4.20-5.40); RED CELL DISTRIBUTION WIDTH 13.6 % (11.6-13.7); WHITE BLOOD COUNT (AUTO) 6.2 K/uL (4.8-10.8)
[2022-02-08 15:27] LABS: PROTHROMBIN TIME 9.4 secs (10.8-13.4)
[2022-02-08 15:44] LABS: ALBUMIN 3.6 g/dL (3.4-5.0); ANION GAP 12.4 (8-16); ASPARTATE AMINOTRANSFERASE 24 U/L (15-37); CARBON DIOXIDE 28.7 mmol/L (21-32); CHLORIDE 105 mmol/L (98-107); CREATININE 0.7 mg/dL (0.6-1.3); GFR ARICAN-AMERICAN 114 mL/min (>90); GLUCOSE 87 mg/dL (74-106); POTASSIUM 4.1 mmol/L (3.5-5.1); SODIUM SERUM 142 mmol/L (136-145); TOTAL BILIRUBIN 0.3 mg/dL (0.0-1.0); UREA NITROGEN, BLOOD 9 mg/dL (7-18)
[2022-02-08] MEDS ORDERED: KETOROLAC 30 MG/ML VIAL IM ONE (17:25)
[2022-02-08] MEDS ORDERED: [UNRECOGNIZED DRUG - CODE] PO (17:26)
[2022-02-08 17:46] VITALS: BP 125/89
== END 2022-02-08 17:46 | disposition home or self-care (01) ==
LOC: MED 12:20
DX: B34.9 Viral infection, unspecified (principal); R09.1 Pleurisy; R07.9 Chest pain, unspecified; J45.909 Unspecified asthma, uncomplicated; I10 Essential (primary) hypertension; F17.210 Nicotine dependence, cigarettes, uncomplicated; Z79.899 Other long term (current) drug therapy
CPT/HCPCS: 36415; 71045; 80053; 81025; 84484; 85025; 85379; 85610; 85730; 93005; 96372; 99285; J1885

== ENCOUNTER 2022-06-15 10:05 | Emergency (ER) | payer OTHER ==
[~2022-06-15] VITALS: Ht 160 cm; Wt 68.0 kg
[~2022-06-15 10:05] MED LIST changes: -ACET-8386 PO; +ACET-8905 PO; +[UNRECOGNIZED DRUG - CODE] PO
[2022-06-15 10:13] VITALS: BP 162/91
--- NOTE | 2022-06-15 10:21 | NUR ---
PT AMBULATED TO BED 5
--- NOTE | 2022-06-15 10:25 | NUR ---
51YO FEMALE PT C/O BURNING EPIGASTRIC PAIN X5DAYS. REPORTS SUDDEN CONSTANT ONSET. BELIEVES INCREASED SYMPTOMS D/T RECENT INCREASED STRESSED/ANXIETY. STATES N/V-BLOOD. DENIES DIARRHEA, FEVER, CHILLS, SOB. 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 HX: HTN -UNCOMPLIANT W/ MEDS NKA
--- NOTE | 2022-06-15 10:31 | NUR ---
MD ONEILL AT BEDSIDE FOR EVALUATION
[2022-06-15] MEDS ORDERED: FAMOTIDINE 20 MG/2 ML VIAL IVP ONE (10:35)
[2022-06-15] MEDS ORDERED: NACL 0.9% 1,000 ML IV ONE (10:35)
[2022-06-15] MEDS ORDERED: ONDANSETRON 4 MG/2 ML VIAL IVP ONE (10:35)
[2022-06-15] MEDS ORDERED: DICYCLOMINE HCL LIQUID 20 MG, ALUMINUM HYD/MAG/SIMETHICONE 30 ML, LIDOCAINE VISCOUS 2% ... PO ONE ×3 (10:35)
[2022-06-15] MEDS ORDERED: ALUMINUM HYD/MAG/SIMETHICONE 30 ML UDC ONE (10:44)
[2022-06-15] MEDS ORDERED: DICYCLOMINE HCL LIQUID 10 MG/5 ML UDC ONE (10:45)
[2022-06-15 11:17] LABS: BASOPHILS # (AUTO) 0.1 K/uL (0.00-0.22); BASOPHILS % (AUTO) 1.1 % (0.0-2.0); EOSINOPHILS # (AUTO) 0.2 K/uL (0-0.4); EOSINOPHILS % (AUTO) 3.6 % (0.0-4.0); HEMATOCRIT 45.4 % (36-48); HEMOGLOBIN 15.2 g/dL (12.0-16.0); LYMPHOCYTES # (AUTO) 1.5 K/uL (2.5-16.5); LYMPHOCYTES % (AUTO) 22.3 % (20.5-51.1); MEAN CORPUSCULAR HEMOGLOBIN 30 pg (27-31); MEAN CORPUSCULAR HGB CONC 34 g/dL (33-37); MEAN CORPUSCULAR VOLUME 90.7 fL (80-94); MONOCYTES # (AUTO) 0.5 K/uL (0.8-1.0); MONOCYTES % (AUTO) 7.1 % (1.7-9.3); NEUTROPHILS # (AUTO) 4.4 K/uL (1.8-7.7); NEUTROPHILS % (AUTO) 65.9 % (42.2-75.2); PLATELET COUNT (AUTO) 323 K/uL (140-450); RED CELL DISTRIBUTION WIDTH 13.5 % (11.6-13.7); WHITE BLOOD COUNT (AUTO) 6.7 K/uL (4.8-10.8)
[2022-06-15 11:36] LABS: ALBUMIN 3.1 g/dL (3.4-5.0); ANION GAP 9.6 (8-16); ASPARTATE AMINOTRANSFERASE 17 U/L (15-37); CARBON DIOXIDE 29.5 mmol/L (21-32); CHLORIDE 106 mmol/L (98-107); CREATININE 0.9 mg/dL (0.6-1.3); GFR ARICAN-AMERICAN 85 mL/min (>90); GLUCOSE 109 mg/dL (74-106); LIPASE 138 U/L (73-393); POTASSIUM 4.1 mmol/L (3.5-5.1); SODIUM SERUM 141 mmol/L (136-145); TOTAL BILIRUBIN 0.3 mg/dL (0.0-1.0); UREA NITROGEN, BLOOD 18 mg/dL (7-18)
[2022-06-15] MEDS ORDERED: diazePAM 5 MG TAB PO ONE (11:40)
[2022-06-15] MEDS ORDERED: FAMO-90 PO (11:59)
--- NOTE | 2022-06-15 12:00 | NUR ---
IV removed, catheter intact and site benign. Applied folded 4x4 gauze and tape to stop bleeding.
[2022-06-15 12:10] VITALS: BP 151/88
--- NOTE | 2022-06-15 12:10 | NUR ---
Patient discharged with v/s stable. Written and verbal after care instructions FOR GASTRITIS given and explained. Patient alert, oriented and verbalized understanding of instructions. Ambulatory with steady gait. All questions addressed prior to discharge. ID band removed. Patient advised to follow up with PMD. Rx of PEPCID given. Opportunity to ask questions provided and answered.
--- NOTE | 2022-06-15 12:11 | NUR ---
The patient's care was reviewed and supervised by Minerva Rios, RN, RN.
== END 2022-06-15 12:10 | disposition home or self-care (01) ==
LOC: MED 10:05
DX: R10.13 Epigastric pain (principal); J45.909 Unspecified asthma, uncomplicated; I10 Essential (primary) hypertension; Z79.899 Other long term (current) drug therapy
CPT/HCPCS: 36415; 71045; 80053; 83690; 84484; 84703; 85025; 93005; 96361; 96374; 96375; 99285; J2405; J3490; J7030; Q0092

== ENCOUNTER 2022-07-01 06:45 | Emergency (ER) | payer OTHER ==
[~2022-07-01] VITALS: Ht 160 cm; Wt 68.0 kg
[~2022-07-01 06:45] MED LIST changes: +FAMO-90 PO
[2022-07-01 06:51] VITALS: BP 154/110
[2022-07-01] MEDS ORDERED: METOCLOPRAMIDE 10 MG/2 ML INJ VIAL IVP ONE (07:25)
[2022-07-01] MEDS ORDERED: DEXAMETHASONE 10 MG/ML VIAL IVP ONE (07:25)
[2022-07-01] MEDS ORDERED: LABETALOL 20 MG/4 ML VIAL IVP ONE ×3 (07:25→09:05)
[2022-07-01] MEDS ORDERED: ACETAMINOPHEN EXTRA STRENGTH 500 MG TAB PO ONE (07:25)
[2022-07-01] MEDS ORDERED: diphenhydrAMINE 50 MG/ML VIAL IVP ONE (07:25)
[2022-07-01 08:19] LABS: APPEARANCE,URINE CLEAR (CLEAR); BILIRUBIN,URINE NEGATIVE (NEGATIVE); BLOOD, URINE NEGATIVE (NEGATIVE); COLOR,URINE YELLOW (YELLOW); LEUKOCYTE ESTERASE ,URINE TRACE (NEGATIVE); NITRITE, URINE NEGATIVE (NEGATIVE); PH,URINE 6.5 (5.0-9.0); UGLUCOSE NEGATIVE (NEGATIVE)
[2022-07-01] MEDS ORDERED: DEXAMETHASONE 10 MG/ML VIAL ONE (08:42)
[2022-07-01] MEDS ORDERED: METOCLOPRAMIDE 10 MG/2 ML INJ VIAL ONE (08:42)
[2022-07-01] MEDS ORDERED: diphenhydrAMINE 50 MG/ML VIAL ONE (08:42)
[2022-07-01] MEDS ORDERED: ACETAMINOPHEN EXTRA STRENGTH 500 MG TAB ONE (08:43)
[2022-07-01] MEDS: KETOROLAC 30 MG/ML VIAL IVP ONE ×2 (09:15→10:11)
[2022-07-01 09:17] LABS: BASOPHILS # (AUTO) 0.1 K/uL (0.00-0.22); BASOPHILS % (AUTO) 0.7 % (0.0-2.0); EOSINOPHILS # (AUTO) 0.3 K/uL (0-0.4); EOSINOPHILS % (AUTO) 3.5 % (0.0-4.0); HEMATOCRIT 43.8 % (36-48); HEMOGLOBIN 14.7 g/dL (12.0-16.0); LYMPHOCYTES # (AUTO) 1.4 K/uL (2.5-16.5); LYMPHOCYTES % (AUTO) 19.1 % (20.5-51.1); MEAN CORPUSCULAR HEMOGLOBIN 30 pg (27-31); MEAN CORPUSCULAR HGB CONC 34 g/dL (33-37); MEAN CORPUSCULAR VOLUME 89.9 fL (80-94); MONOCYTES # (AUTO) 0.5 K/uL (0.8-1.0); MONOCYTES % (AUTO) 6.3 % (1.7-9.3); NEUTROPHILS # (AUTO) 5.1 K/uL (1.8-7.7); NEUTROPHILS % (AUTO) 70.4 % (42.2-75.2); PLATELET COUNT (AUTO) 304 K/uL (140-450); RED BLOOD CELL COUNT(AUTO) 4.87 MIL/uL (4.20-5.40); RED CELL DISTRIBUTION WIDTH 13.3 % (11.6-13.7); WHITE BLOOD COUNT (AUTO) 7.3 K/uL (4.8-10.8)
[2022-07-01] MEDS ORDERED: NACL 0.9% 1,000 ML IV ONE (09:30)
[2022-07-01] MEDS ORDERED: DIHYDROERGOTAMINE 1 MG/ML AMP IVP ONE (09:35)
[2022-07-01 09:53] LABS: ALBUMIN 3.4 g/dL (3.4-5.0); ANION GAP 10.5 (8-16); CARBON DIOXIDE 28.4 mmol/L (21-32); CREATININE 0.8 mg/dL (0.6-1.3); POTASSIUM 3.9 mmol/L (3.5-5.1); TOTAL BILIRUBIN 0.3 mg/dL (0.0-1.0)
--- NOTE | 2022-07-01 10:20 | NUR ---
PT ASLEEP AT THIS TIME, NO C/O PAIN. BECAME ANXIOUS EARLIER WITH BENADRYL IV BUT NO DISTRESS. ASKED FOR OTHER MEDS TO MAKE HER SLEEP, SAYS MEDS ORDERED WILL NOT WORK.PT PAIN FREE AT THIS TIME
[2022-07-01] MEDS ORDERED: CYCLOBENZAPRINE 10 MG TAB PO ONE (12:00)
[2022-07-01] MEDS ORDERED: ONDANSETRON 4 MG/2 ML VIAL IVP ONE (12:00)
[2022-07-01] MEDS ORDERED: LIDOCAINE 5% 1 EA PATCH TP ONE (12:00)
[2022-07-01] MEDS ORDERED: SUMAtriptan succinate 6 MG/0.5 ML VIAL SUBQ ONE (12:00)
[2022-07-01] MEDS ORDERED: MORPHINE SULFATE 4 MG/ML SYR IVP ONE (12:00)
--- NOTE | 2022-07-01 13:08 | NUR ---
CALLED FOR HER RIDE AFTER GIVEN IV MORPHINE "IT'S WORKING ALREADY"
[2022-07-01] MEDS ORDERED: SUMA1TAB2 PO (13:11)
[2022-07-01] MEDS ORDERED: ACET-10509 PO (13:11)
[2022-07-01] MEDS ORDERED: CYCL-711 PO (13:11)
[2022-07-01] MEDS ORDERED: LID5T TP (13:11)
[2022-07-01 14:10] VITALS: BP 146/98
== END 2022-07-01 14:10 | disposition home or self-care (01) ==
LOC: MED 06:45
DX: G43.909 Migraine, unspecified, not intractable, without status migrainosus (principal); M62.830 Muscle spasm of back; J45.909 Unspecified asthma, uncomplicated; I10 Essential (primary) hypertension; F17.210 Nicotine dependence, cigarettes, uncomplicated; Z71.6 Tobacco abuse counseling; Z90.710 Acquired absence of both cervix and uterus; Z79.899 Other long term (current) drug therapy; Z79.891 Long term (current) use of opiate analgesic; Z79.1 Long term (current) use of non-steroidal anti-inflammatories (NSAID); Z79.2 Long term (current) use of antibiotics
CPT/HCPCS: 36415; 70450; 80053; 81003; 81025; 85025; 96361; 96372; 96374; 96375; 99285; J1100; J1110; J1200; J1885; J2270; J2405; J2765; J3030; J3490

== ENCOUNTER 2022-09-07 05:50 | Emergency (ER) | payer OTHER ==
[~2022-09-07] VITALS: Ht 160 cm; Wt 68.0 kg
[~2022-09-07 05:50] MED LIST changes: +ACET-10509 PO; +CYCL-711 PO; +LID5T TP; +SUMA1TAB2 PO
[2022-09-07 06:00] VITALS: BP 148/106; PULSE 102; RESP 20; TEMP 97; O2SAT 98
--- NOTE | 2022-09-07 06:11 | NUR ---
Pt went to bed 4
--- NOTE | 2022-09-07 06:15 | NUR ---
Patient resting in bed, A/Ox4, chest rise and fall symmetrical, no s/s of distress, on monitor.
--- NOTE | 2022-09-07 06:32 | NUR ---
Dr. Gonzalez at bedside assessing patient.
[2022-09-07] MEDS ORDERED: methocarbamoL 500 MG TAB PO STA (06:38)
[2022-09-07] MEDS ORDERED: ACETAMINOPHEN 325 MG TAB PO ONE (06:40)
[2022-09-07] MEDS ORDERED: KETOROLAC 15 MG/ML VIAL IM ONE (06:40)
[2022-09-07] MEDS ORDERED: KETOROLAC 30 MG/ML VIAL IM ONE (06:55)
--- NOTE | 2022-09-07 07:18 | NUR ---
Change of shift report given to AM Shift Nurse Karlee VOGEL. AM Shift Nurse Karlee VOGEL verbalized understanding of report, no further questions.
--- NOTE | 2022-09-07 07:30 | NUR ---
Received bed side report from DAXA Olguin. Call light with in reach.
[2022-09-07 07:34] VITALS: O2SAT 96
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
[2022-09-07] MEDS ORDERED: IBUP-2213 PO (08:00)
--- NOTE | 2022-09-07 08:16 | NUR ---
Patient discharged with v/s stable. Written and verbal after care instructions given and explained. Patient verbalized understanding. Wheel Chair Assisted with to car. All questions addressed prior to discharge. Advised to follow up with PMD.
[2022-09-07 08:18] VITALS: BP 151/93; PULSE 99; RESP 16; TEMP 98.1; O2SAT 99
--- NOTE | 2022-09-07 08:37 | NUR ---
CD FR IMAGING GIVEN TO PT
--- NOTE | 2022-09-07 08:37 | NUR ---
The patient's care was reviewed and supervised by DAYANA SOTO RN.
== END 2022-09-07 08:37 | disposition home or self-care (01) ==
LOC: MED 05:50
DX: M25.562 Pain in left knee (principal); I10 Essential (primary) hypertension; J45.909 Unspecified asthma, uncomplicated; Z79.899 Other long term (current) drug therapy
CPT/HCPCS: 73562; 96372; 99283; J1885; Q0092

== ENCOUNTER 2022-09-29 | Emergency (ER) | payer OTHER ==
[~2022-09-29] VITALS: Ht 160 cm; Wt 68.0 kg
[2022-09-29 00:16] VITALS: BP 153/113; PULSE 87; RESP 18; TEMP 97; O2SAT 99
--- NOTE | 2022-09-29 00:56 | NUR ---
PT TO BED 8 AMBULATORY
--- NOTE | 2022-09-29 00:58 | NUR ---
51 YO F BIB SELF C/O MIGRAINE HEADACHE THAT OCCURED TODAY POST EGD. PT STATES MIGRAINE BEGAN 163 AND SHE ALSO STATES SHE "PASSED OUT" AT 2129 AT HOME. DENIES FALL AND SAYS THIS OCCURED WHILE SHE WAS SITTING IN A CHAIR. AXO4. MIGRAINE PAIN 12/08. CALL LIGHT WITHIN REACH. NKDA MED HX: HTN, ANXIETY, ASTHMA, STOMACH ULCERS
[2022-09-29] MEDS ORDERED: diphenhydrAMINE 50 MG/ML VIAL IVP ONE (01:00)
[2022-09-29] MEDS ORDERED: PROCHLORPERAZINE 10 MG/2 ML VIAL IVP ONE (01:00)
[2022-09-29] MEDS ORDERED: MORPHINE SULFATE 4 MG/ML SYR IVP ONE (01:00)
[2022-09-29 01:02] LABS: BASOPHILS # (AUTO) 0.1 K/uL (0.00-0.22); EOSINOPHILS # (AUTO) 0.4 K/uL (0-0.4); HEMATOCRIT 43.5 % (36-48); HEMOGLOBIN 14.7 g/dL (12.0-16.0); LYMPHOCYTES # (AUTO) 1.9 K/uL (2.5-16.5); LYMPHOCYTES % (AUTO) 22.4 % (20.5-51.1); MEAN CORPUSCULAR HEMOGLOBIN 31 pg (27-31); MEAN CORPUSCULAR HGB CONC 34 g/dL (33-37); MONOCYTES # (AUTO) 0.5 K/uL (0.8-1.0); MONOCYTES % (AUTO) 5.8 % (1.7-9.3); NEUTROPHILS # (AUTO) 5.6 K/uL (1.8-7.7); NEUTROPHILS % (AUTO) 65.8 % (42.2-75.2); PLATELET COUNT (AUTO) 302 K/uL (140-450); RED BLOOD CELL COUNT(AUTO) 4.83 MIL/uL (4.20-5.40); RED CELL DISTRIBUTION WIDTH 13.6 % (11.6-13.7); WHITE BLOOD COUNT (AUTO) 8.5 K/uL (4.8-10.8)
[2022-09-29 01:19] LABS: ALBUMIN 3.5 g/dL (3.4-5.0); ANION GAP 7.1 (8-16); ASPARTATE AMINOTRANSFERASE 17 U/L (15-37); CARBON DIOXIDE 33.8 mmol/L (21-32); CHLORIDE 105 mmol/L (98-107); CREATININE 0.8 mg/dL (0.6-1.3); GFR ARICAN-AMERICAN 98 mL/min (>90); GLUCOSE 119 mg/dL (74-106); POTASSIUM 3.9 mmol/L (3.5-5.1); SODIUM SERUM 142 mmol/L (136-145); TOTAL BILIRUBIN 0.3 mg/dL (0.0-1.0); UREA NITROGEN, BLOOD 11 mg/dL (7-18)
--- NOTE | 2022-09-29 02:15 | NUR ---
PT AWAKE AND STATES PAIN LEVEL 9/10. BED IN LOWEST POSITION. SIDE RAILS UP X2. 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
[2022-09-29] MEDS ORDERED: SUMAtriptan succinate 50 MG TAB PO ONE (02:20)
[2022-09-29] MEDS ORDERED: SUMA100T1 PO (03:03)
[2022-09-29] MEDS ORDERED: hydrALAZINE 20 MG/ML VIAL IVP ONE (03:10)
[2022-09-29 03:46] VITALS: O2SAT 99
[2022-09-29 04:09] VITALS: BP 160/77; PULSE 87; RESP 16; O2SAT 100
== END 2022-09-29 04:06 | disposition home or self-care (01) ==
LOC: MED
DX: G43.909 Migraine, unspecified, not intractable, without status migrainosus (principal); I10 Essential (primary) hypertension; J45.909 Unspecified asthma, uncomplicated; Z79.899 Other long term (current) drug therapy
CPT/HCPCS: 36415; 80053; 84484; 85025; 93005; 96374; 96375; 99284; J0360; J0780; J1200; J2270

== ENCOUNTER 2022-10-22 14:36 | Emergency (ER) | payer OTHER | END 2022-10-22 14:37 | disposition left against medical advice (07) | LOC: MED 14:36 | DX: R51.9 Headache, unspecified (principal); Z53.21 Procedure and treatment not carried out due to patient leaving prior to being seen by health care provider | CPT/HCPCS: 99281 ==

== ENCOUNTER 2022-11-15 22:35 | Emergency (ER) | payer OTHER ==
[~2022-11-15] VITALS: Ht 160 cm; Wt 68.0 kg
[2022-11-15 22:50] VITALS: BP 178/112; PULSE 109; RESP 14; TEMP 97.7; O2SAT 100
[2022-11-16] MEDS ORDERED: ACETAMINOPHEN EXTRA STRENGTH 500 MG TAB PO ONE (03:45)
[2022-11-16] MEDS ORDERED: KETOROLAC 30 MG/ML VIAL IM ONE (03:45)
[2022-11-16] MEDS ORDERED: BACLOFEN 10 MG TAB PO SCH (03:45)
[2022-11-16] MEDS ORDERED: LID5T TP (03:47)
[2022-11-16] MEDS ORDERED: NAPR-1704 PO (03:47)
[2022-11-16] MEDS ORDERED: ACET-10509 PO (03:47)
[2022-11-16] MEDS ORDERED: BACL10TA4 PO (03:47)
== END 2022-11-16 04:25 | disposition home or self-care (01) ==
LOC: MED 22:35
DX: G57.01 Lesion of sciatic nerve, right lower limb (principal); J45.909 Unspecified asthma, uncomplicated; I10 Essential (primary) hypertension; F41.9 Anxiety disorder, unspecified; G43.909 Migraine, unspecified, not intractable, without status migrainosus; Z79.899 Other long term (current) drug therapy
CPT/HCPCS: 73502; 96372; 99283; J1885

== ENCOUNTER 2023-01-26 12:01 | Emergency (ER) | payer OTHER ==
[~2023-01-26] VITALS: Ht 160 cm; Wt 65.3 kg
[~2023-01-26 12:01] MED LIST changes: +BACL10TA4 PO; +NAPR-1704 PO
[2023-01-26 12:13] VITALS: BP 131/78; PULSE 101; RESP 18; TEMP 97.1; O2SAT 100
[2023-01-26] MEDS ORDERED: KETOROLAC 30 MG/ML VIAL IVP ONE (13:20)
[2023-01-26] MEDS ORDERED: METOCLOPRAMIDE 10 MG/2 ML INJ VIAL IVP ONE (13:20)
[2023-01-26] MEDS ORDERED: NACL 0.9% 1,000 ML IV ONE (13:20)
[2023-01-26] MEDS ORDERED: diphenhydrAMINE 50 MG/ML VIAL IVP ONE (13:20)
[2023-01-26 13:57] LABS: BILIRUBIN,URINE NEGATIVE (NEGATIVE); BLOOD, URINE 1+ (NEGATIVE); COLOR,URINE YELLOW (YELLOW); LEUKOCYTE ESTERASE ,URINE NEGATIVE (NEGATIVE); PH,URINE 6.5 (5.0-9.0); PROTEIN,URINE TRACE (NEGATIVE); UGLUCOSE NEGATIVE (NEGATIVE); UROBILINOGEN,URINE 0.2 EU/dL (0.2 - 1)
[2023-01-26 14:22] LABS: AMPHETAMINE, URINE POSITIVE ng/ml (NEG <=1000); BARBITURATE, URINE NEGATIVE ng/ml (NEG <=200); BENZODIAZEPINE, URINE NEGATIVE ng/mL (NEG <=200); CANNABINOID, URINE NEGATIVE ng/mL (NEG <=50); COCAINE, URINE NEGATIVE ng/mL (NEG <=300); OPIATE, URINE NEGATIVE ng/mL (NEG <=2000); PHENCYCLIDINE SCREEN,URINE NEGATIVE ng/mL (NEG <=25)
[2023-01-26 14:28] LABS: APPEARANCE,URINE SLIGHTLY HAZY (CLEAR); BACTERIA,URINE 1+ /HPF (None Seen); NITRITE, URINE POSITIVE (NEGATIVE); RBC,URINE 0-5 /HPF (0-5); WBC,URINE 0-5 /HPF (0-5)
[2023-01-26 15:09] VITALS: BP 125/77; PULSE 90; RESP 18; TEMP 98; O2SAT 100
== END 2023-01-26 15:09 | disposition home or self-care (01) ==
LOC: MED 12:01
DX: G43.909 Migraine, unspecified, not intractable, without status migrainosus (principal); F15.90 Other stimulant use, unspecified, uncomplicated; J45.909 Unspecified asthma, uncomplicated; I10 Essential (primary) hypertension; Z79.899 Other long term (current) drug therapy; Z79.1 Long term (current) use of non-steroidal anti-inflammatories (NSAID); Z79.2 Long term (current) use of antibiotics
CPT/HCPCS: 80305; 81001; 96361; 96374; 96375; 99284; J1200; J1885; J2765; J7030